=== PATIENT | female | born 1960 | race Caucasian/White ===

== ENCOUNTER 2017-05-29 18:16 | Emergency (ER) | payer OTHER ==
[~2017-05-29] VITALS: Ht 167.6 cm; Wt 39.9 kg
[~2017-05-29 18:16] MED LIST: ANTABUSE250 MG PO; ASPIRIN EC81 MG PO; BACTRIM DS TAB1 EACH PO; FOLIC ACID1 MG PO; METOPROLOL TART25 MG PO; MULTI VITAMIN1 EACH PO; NORCO 7.5-3251 EACH PO; PAROXETINE HCL20 MG PO; POTASSIUM40 MEQ/15 PO; PROTONIX40 MG PO; SENNA8.6 MG PO; SEROQUEL25 MG PO; THIAMINE HCL100 MG PO; VALIUM5 MG PO; ZOFRAN ODT4 MG PO
[2017-05-29] MEDS ORDERED: POTASSIUM CHLO10 MEQ PO (23:04)
[2017-05-29] MEDS ORDERED: ZOFRAN ODT4 MG PO (23:04)
--- NOTE | 2017-05-30 00:18 | EKG ---
[facility] [address] [facility] [place], [place] [address] Signed Normal sinus rhythm Low voltage QRS Borderline ECG No previous ECGs available Confirmed by NATALIO PASCAL MD ([id number]) on 05/30/2017 12:18:36 AM Electronically Signed By: NATALIO PASCAL MD 05/30/17 0018 PATIENT NAME: CHIDI LEDBETTER Claudia Electrocardiogram DATE OF : 62 PHYSICIAN: NATALIO PASCAL MD REPORT #: [id number] REPORT IS CONFIDENTIAL AND NOT TO BE RELEASED WITHOUT AUTHORIZATION
== END 2017-05-30 00:40 | disposition home or self-care (01) ==
LOC: ED 18:16
DX: F10.10 Alcohol abuse, uncomplicated (principal); E87.6 Hypokalemia; F32.9 Major depressive disorder, single episode, unspecified; F17.200 Nicotine dependence, unspecified, uncomplicated; Z90.49 Acquired absence of other specified parts of digestive tract; Z96.642 Presence of left artificial hip joint; Z88.1 Allergy status to other antibiotic agents; Z79.82 Long term (current) use of aspirin; Y90.0 Blood alcohol level of less than 20 mg/100 ml
CPT/HCPCS: 51701; 71010; 73502; 80053; 81001; 84484; 85025; 93005; 93010; 96365; 96368; 99284; G0480; J3411; J3480; J7030

== ENCOUNTER 2017-06-03 12:28 | Inpatient (IN) | payer OTHER ==
[~2017-06-03] VITALS: Ht 167.6 cm; Wt 46.5 kg
[~2017-06-03 12:28] MED LIST changes: +POTASSIUM CHLO10 MEQ PO
--- NOTE | 2017-06-03 17:10 | NUR ---
56 YEAR OLD FEMALE PATIENT ADMITTED TO CCU UNDER DR. CONTRERAS WITH DX ALTERED SENSORIUM. K=2.7,MG=1.2. HX OF ETOH ABUSE WITH DT'S. UPON ADMIT PATIENT WILL SAY ONNLY FEW WORDS, WILL FOLLOW COMMANDS RARELY. CONTROLLED MOVEMENT NOTED IN LEFT ARM AND LEFT LEG. HAS BRUSIES ON BACK, LEGS, ARMS. HAS HAS POSSIBLE SEIZURES AT HOME. SHAY WITH CONCENTRATED URINE. FAMILY IN ROOM. ADMISSION PROCESS STARTED. HEAD CT DONE EARLIER.
--- NOTE | 2017-06-03 18:30 | NUR ---
TAKING FEW SIPS OF WATER. DENEIS NAUSEA.
--- NOTE | 2017-06-03 20:00 | NUR ---
assessment done. HAS BEEN TAKING SIPS OF WATER WITH HOB ELEVATED W/O PROBLEMS. IS TRYING TO CHEW ON OXIMETER. OXIMETER CHANGED TO LEFT HAND. IS MORE ALERT ANSWERING FEW QUESTIONS. NO SEIZURE ACTIVITY NOTED.
--- NOTE | 2017-06-03 20:20 | NUR ---
500 ML BOLUS LR HUNG PER ORDERS BP-84/51 (58).
--- NOTE | 2017-06-03 20:51 | NUR ---
500 ML BOLUS LR COMPLETE. PATIENT IS RESTFUL.
--- NOTE | 2017-06-03 21:41 | NUR ---
ASLEEP, NO DISTRESS NOTED.
--- NOTE | 2017-06-03 22:18 | NUR ---
REPORT TO NEXT SHIFT. PATIENT IS ASLEEP.
--- NOTE | 2017-06-03 22:30 | NUR ---
FULL REPORT GIVEN BY ORLIN BRASHER. ALL QUESTIONS ANSWERED.
--- NOTE | 2017-06-03 22:45 | NUR ---
PT SLEEPING LIGHTLY, VITALS WNL AT THIS TIME, FLUIDS INFUSING EASILY. IV SITE INTACT, NO REDNESS OR SWELLING NOTED.
--- NOTE | 2017-06-03 22:55 | EKG ---
[facility] [address] [facility] [place] [address] Signed Normal sinus rhythm Low voltage QRS Prolonged QT Abnormal ECG When compared with ECG of 31-MAY-2017 09:15, premature ventricular complexes are no longer present Criteria for Septal infarct are no longer present T wave amplitude has decreased in Lateral leads Confirmed by LILA CONTRERAS MD ([id number]) on 06/03/2017 10:55:22 PM Electronically Signed By: LILA CONTRERAS MD 06/03/17 2255 PATIENT NAME: CHIDI LEDBETTER Claudia Electrocardiogram DATE OF : 62 PHYSICIAN: LILA CONTRERAS MD REPORT #: [id number] REPORT IS CONFIDENTIAL AND NOT TO BE RELEASED WITHOUT AUTHORIZATION
--- NOTE | 2017-06-03 23:40 | NUR ---
CALLED TO UPDATE ON LOW URINE OUTPUT, 1L LR BOLUS ORDERED TO BE GIVEN OVER 3 HOURS.
--- NOTE | 2017-06-04 00:05 | NUR ---
20 G IV STARTED IN LEFT FOREARM. PT MARY ALICE WELL. FLUIDS INFUSING EASILY. IV SITE IN RT FOREARM INTACT, FLUIDS INFUSING EASILY, NO REDNESS OR SWELLING NOTED. PT DID NOT OPEN EYES DURING PLACEMENT OF NEW IV. PT REMAINS OBTUNDED.
--- NOTE | 2017-06-04 00:30 | NUR ---
IN TO CHECK ON PT, PT APPEARS TO BE SLEEPING. AWAKEN EASILY TO VOICE. PT REPOSITION TO R SIDE, PILLOW UNDER HIPS AND LEGS. HEEL PROTECTOR IN PLACE. PT STATES "GUYS I AM GOOD FOR NOW." PT REASSURED THAT REPOSITION WILL HELP PREVENT SKIN BREAK DOWN. RN UNAWARE IF PT UNDERSTANDS. BED ALARM IN PLACE, CALL LIGHT IN REACH.
--- NOTE | 2017-06-04 02:15 | NUR ---
PT SLEEPING SOUNDLY, VITALS WNL. PT URINE OUTPUT REMAINS LOW.
--- NOTE | 2017-06-04 03:50 | NUR ---
CALLED TO UPDATE ON PT LOW URINE OUTPUT. ORDER GIVEN TO INCREASE RATE OF MAINTNENCE FLUIDS TO 200 ML/HR.
--- NOTE | 2017-06-04 04:12 | NUR ---
IV SITES INTACT, NO REDNESS OR SWELLING NOTED, FLUIDS INFUSING AT BOTH SITES EASILY.
--- NOTE | 2017-06-04 05:36 | NUR ---
PT REMAINS OBTUNDED, MOANS OCCASIONALLY, PT IS NOT THRASHING OR FLAILING LIMBS.
--- NOTE | 2017-06-04 10:00 | NUR ---
UP TO CHAIR WITH ASSIST. MINIMAL WEIGHT AN LEFT LEG. UNABLE TO TAKE A STEP. IS MORE VERBAL. FAMILY IN ROOM.
--- NOTE | 2017-06-04 12:30 | NUR ---
HAVING DIFFICULTY WITH VISION, ATTEMPTS TO ORDER DESK CALLER GLASS/CUP, IS OFF WITH REACH OF THESE ITEMS. SPILLED SOUP WHEN REACHING FOR IT.
--- NOTE | 2017-06-04 12:33 | NUR ---
dr. allen here TO SEE PATIENT. ORDERS RECIEVED.
--- NOTE | 2017-06-04 12:55 | NUR ---
WILL BE TRANSFERRED TO MEDICAL FLOOR TODAY. SITTING UP IN CHAIR TAKING ENSURE/CLEAR LIQ AND CHICKEN NOODLE SOUP. CLEARS THROAT AFTER TAKING BITE.
--- NOTE | 2017-06-04 13:40 | NUR ---
JASPAL LEYVA DC'D. BACK TO BED WITH TOTAL ASSIST. IS VERY FRUSTRATED. FAMILY IN ROOM. C/O LEFT WRIST PAIN, WRIST IS SLIGHTLY SWOLLEN.
--- NOTE | 2017-06-04 14:25 | NUR ---
REPORT GIVEN, TO MEDICAL FLOOR VIA BED.
--- NOTE | 2017-06-04 14:30 | NUR ---
PT ARRIVED TO FLOOR FROM CCU VIA BED. PT ORIENTED TO HER BIRTHDAY AND THAT SHE IS IN MED. OTHERWISE UNABLE TO ANSWER ORIENTATION QUESTIONS STATES "I DON'T KNOW". PT DENIES PAIN OR NAUSEA, KEEPS SAYING "I HAVE TO BE DISCHARGED NOW, I NEED TO GET OUT OF HERE." LEFT SIDE FLACCID AT THIS TIME, LISTS TO LEFT WHEN SITTING UP, CANNOT SIT AT EDGE OF BED WITHOUT ASSISTANCE. BOTH IV SITES INTACT, RIGHT ARM IV INFUSING WNL. PT HAS MANY SMALL SCATTERED BRUISES ON BODY. SCABS TO TOP OF TOES ON RIGHT FOOT, SMALL OPEN PRESSURE SORE ON LEFT GREAT TOE, BALL JOINT. PHOTOS TAKEN AND ALLEVYN FOAM DRESSING APPLIED. HEEL PROTECTORS IN PLACE. BUTTOCKS SLIGHTLY REDDENED, BLANCHABLE, PT FLOATED ON PILLOWS. SCABS ON BILATERAL ELBOWS. BED ALARM ON.
--- NOTE | 2017-06-04 15:00 | NUR ---
PT 2PA PIVOT TRANSFER TO BSC. VOIDED AND HAD SMALL, LOOSE STOOL. ATTENDS ON AND PT ASSISTED BACK TO BED. FLOATED ON PILLOWS. BED ALARM ON.
--- NOTE | 2017-06-04 17:15 | NUR ---
PT ATTENDS CHANGED, INCONTINENT OF URINE. REPOSITIONED IN BED. MENTATION AND LEFT SIDED WEAKNESS UNCHANGED.
--- NOTE | 2017-06-04 18:36 | NUR ---
PT NEEDED ASSISTANCE TO EAT DINNER DUE TO COORDINATION DIFFICULTIES. NOTED THAT PT COUGHED FREQUENTLY AFTER A COUPLE BITES, MOVED FOOD AROUND IN MOUTH FOR A LONG TIME BEFORE SWALLOWING. MADE PT NPO AND NOTIFIED DR. CONTRERAS. BEDSIDE SWALLOW EVAL COMPLETED. PT REPOSITIONED IN BED AND RESTING AT THIS TIME.
--- NOTE | 2017-06-04 19:30 | NUR ---
REPORT RCVD FROM NATHAN BRASHER. IN TO SEE PT, PT AWAKE SITTING IN BED. PT DENIES PAIN AT THIS TIME. NO FURTHER NEEDS AT THIS TIME. BED ALARM IN PLACE. CALL LIGHT IN REACH.
--- NOTE | 2017-06-04 21:20 | NUR ---
IN TO SEE PT, ASSESSMENT COMPLETE. CWA SCORE OF 6. PT NOTED TO BE SLOW TO RESPOND BUT ORIENT TO SELF. PT ABLE TO GIVE FULL NAME AND . FLACCIDITY IN LEFT UPPER AND LOWER EXTREMITY NOTED. PT UNABLE TO GASP WITH L HAND. SENIOR PROPERTY MANAGER STRENGTH AND ROM IN RUE AND RLE INTACT. ATTENDS CHANGES. REDDNESS ON BUTTOCKS NOTED. PT REPOSITION TO BACK AND LEGS ELEVATED WITH PILLOW. WARM BLANCKET GIVEN. BED ALARM ON, CALL LIGHT IN REACH.
--- NOTE | 2017-06-05 01:11 | NUR ---
PT RESTING IN BED WITH EYES OPEN, STARING AT CEILING. DOES NOT LOOK WHEN TAP PULLER ENTERS THE ROOM. RESPIRATIONS ARE EVEN AND UNLABORED. NO S/SX OF DISTRESS. CALL LIGHT WITHIN REACH. ROOM IN VIEW OF NURSES STATION. BED ALARM IN PLACE.
--- NOTE | 2017-06-05 02:55 | NUR ---
INTO CHECK ON PT, PT APPEARS TO BE SLEEPING. AWAKENS TO VOICE. ATTENDS DRY AT THIS TIME. REPOSITION TO BACK, LEGS ELEVATED ON PILLOW. HEEL PROTECTORS IN PLACE. BED ALARM ON, CALL LIGHT IN PLACE.
--- NOTE | 2017-06-05 04:06 | NUR ---
CHANGED PATIENT'S ATTENDS. REPOSITIONED TO LAYING ON HER RIGHT SIDE.
--- NOTE | 2017-06-05 04:10 | NUR ---
IN TO HELP CHANGES ATTENDS. WHEN ADVISING PT THAT ATTENDS ARE TO BE CHANGED, PT STATES "NO I DON'T WANT THAT RIGHT NOW." PT APPEARED ANXIOUS. REASSURED THAT WILL CHANGE ATTEND QUICKLY AND RECOVER PT. PT UNABLE TO FOLLOW COMMANDS AND HELP WITH ROLLING. PT POSTION ON L SIDE WITH PILLOW UNDER HIP AND KNEES. PT RECOVERED. BED ALARM ON AND CALL LIGHT IN REACH.
--- NOTE | 2017-06-05 08:16 | NUR ---
PATIENT IS SLEEPING I DID NOT WAKE HER PATIENT IS NPO, I WILL CHECK BACK IN TO GET AM CARE DONE!
--- NOTE | 2017-06-05 08:20 | NUR ---
PT DROWSY THIS AM. NO CHANGES NOTED FROM ASSESSMENT YESTERDAY. ORIENTED TO SELF AND LOCATION ONLY. DENIES PAIN, NAUSEA. KEEPS SAYING "I GOTTA GET OUT OF HERE." SPEECH SLOW TO RESPOND AND SLURRED. ENTIRE LEFT SIDE FLACCID WITH LEFT FACIAL DROOP NOTED. BED ALARM ON.
--- NOTE | 2017-06-05 08:20 | NUR ---
PT INCONTINENT OF URINE. ATTENDS CHANGED. PT REPOSITIONED IN BED.
--- NOTE | 2017-06-05 10:22 | NUR ---
PT FULL LIFT TRANSFER TO MRI STRETCHER. TRANSPORTED TO IMAGING AT THIS TIME.
--- NOTE | 2017-06-05 11:10 | NUR ---
PT RETURNED FROM MRI. FULL LIFT TRANSFER BACK TO HOSPITAL BED. AM CARES COMPLETED AND ATTENDS CHANGED. PT PLACED IN POSITION OF COMFORT. IV INFUSING WNL. BED RAILS UP AND BED ALARM ON.
--- NOTE | 2017-06-05 12:55 | NUR ---
CHANGES NOTED TO PT'S STATUS. SPEECH HAS BECOME MUCH MORE SLURRED AND DIFFICULT TO UNDERSTAND, PT ORIENTED TO [facility], AND BIRTHDAY. FACIAL TWITCH NOTED, MORE SEVER ON LEFT SIDE, EFFECTING PT'S SPEECH. PT STATED SHE NEEDED TO GO TO THE BATHROOM "NOW!!". THIS RN AND SONI DUBON ATTEMPTED TO GET PT TO BSC. PT WAS UNABLE TO SIT UP WITHOUT FULL ASSISTANCE AND WAS UNABLE TO PIVOT TRANSFER, THIS IS A CHANGE FROM YESTERDAYS AND THIS AM ASSESSMENT. PT ASSISTED BACK TO BED SAFELY AND ATTENDS CHANGED THEY WERE WET. PT REPOSITIONED TO RIGHT SIDE. NOTIFIED DR. CONTRERAS OF PT CHANGES.
--- NOTE | 2017-06-05 14:27 | NUR ---
SCHEDULED MEDS ADMINISTERED. ATTENDS CHANGED AND PT REPOSITIONED IN BED. PT DROWSY D/T ATIVAN ADMINISTRATION BUT FACIAL TWITCH NO LONGER PRESENT AT THIS TIME. PULSE OX ON. PT SATTING 95% ON RA, HR 79.
--- NOTE | 2017-06-05 17:02 | NUR ---
PT ATTENDS CHANGED. REPOSITIONED IN BED. PT VERY DROWSY BUT OPENS EYES WITH VERBAL STIMULI.
--- NOTE | 2017-06-05 18:53 | NUR ---
ATTENDS CHANGED. PT REPOSITIONED.
--- NOTE | 2017-06-05 19:20 | NUR ---
REPORT RCVD FROM NATHAN BRASHER. IN TO SEE PT, PT IN BED. FACIAL TWITCH/TICK. REPORTS OF INCREASED WEAKNESS NOTED. PT NPO UNTIL ST EVAL. PULSE OX IN PLACE. PT INCONT, UO QS. TURN Q2. CALL LIGHT IN REACH.
--- NOTE | 2017-06-05 21:25 | NUR ---
IN TO SEE PT, PT RESTING EYES CLOSED. AWAKENS EASILY TO VOICE. PT ABLE TO VERIFY NAME AND . SPEECH SLOW, BUT ABLE TO RESPOND TO SIMPLE COMMANDS. LUE AND LLE FACCIDITY NOTED. L SIDED FACIAL DROOP AND TICK NOTED. PT NOTED TO BE NPO. PULSE OX IN PLACE. PT REPOSITION AFTER BEING ABLE TO MOVE SELF. CALL LIGHT IN PLACE.
--- NOTE | 2017-06-05 23:00 | NUR ---
IN TO SEE PT. ATTENDS CHANGED, PT REPOSITION TO BACK. WARM BLANKET GIVEN. CALL LIGHT IN REACH.
--- NOTE | 2017-06-06 01:40 | NUR ---
IN TO CHECK ON PT, PT APPEARS TO BE SLEEPING. RR EVEN AND UNLABORED. PT INCONT OF URINE, ATTENDS CHANGED. REPOSITIONED TO RIGHT SIDE. NO FURTHER NEEDS AT THIS TIME. CALL LIGHT IN REACH.
--- NOTE | 2017-06-06 04:51 | NUR ---
IN TO CHECK ON PT, PT AWAKE. ATTENDS CHANGED, REPOSITIONED TO R SIDE. PT CALLS OUT "MOM." PT REORIENTED TO PLACE. PT TALKING, UNABLE TO UNDERSTAND WHAT PT IS TRYING TO CONVEY. IV IN L FORARM WRAPPED DUE TO SKIN TEAR BELOW IV TUBING. BED ALARM ON, CALL LIGHT IN REACH.
--- NOTE | 2017-06-06 05:02 | NUR ---
CHANGED ATTENDS. PATIENT IS REPOSITIONED LAYING ON HER RIGHT SIDE. CALL LIGHT IS WITHIN REACH. BED ALARM ON.
--- NOTE | 2017-06-06 05:28 | NUR ---
PT HAS RESTED WELL DURING THE SHIFT. ORIENTED TO SELF X 1 AND ABLE TO FOLLOW SIMPLE COMMANDS. L SIDED FLACITIY NOTED. L SIDE FACIAL TICK NOTED. INCONT OF URINE. BARRIER CREAM APPLIED TO BUTTOCKS AND PT TURNED Q2. ORAL CARE DONE.
--- NOTE | 2017-06-06 07:50 | NUR ---
PT ATTENDS CHANGED AND REPOSITIONED. FACE WASHED, ORAL CARE COMPLETED. PT ORIENTED TO SELF AND "MED." SPEECH IS SLIGHTLY MORE CLEAR THIS AM ALTHOUGH MOST THINGS SHE SAYS ARE NOT PERTINENT TO THE SITATION. PT DENIES PAIN, JUST STATES "I GOTTA GET OUT OF HERE." LEFT SIDE REMAINS FLACCID. PT ABLE TO FOLLOW SIMPLE COMMANDS FOR ASSESSMENT OF RIGHT SIDE, WEAK BUT CONCIOUS MOVEMENT PRESENT. LEFT FACIAL TWITCH REMAINS. LEFT IV INFUSING WNL. NOTED THAT PT HAD PICKED A COUPLE SCABS OFF OF LEFT ELBOW AREA AND SMALL AMOUNT OF BLEEDING NOTED. CLEANED UP, APPLIED BACITRACIN AND BANDAIDS, WRAPPED ARM WITH GAUZE AND COBAN TO PREVENT FURTHER INJURY. BED ALARM ON.
--- NOTE | 2017-06-06 10:55 | NUR ---
MATERIALS DIRECTOR IN ROOM PERFORMING ECHO AT THIS TIME. PT MARY ALICE WELL.
--- NOTE | 2017-06-06 11:15 | NUR ---
ATTENDS CHANGED, REPOSITIONED IN BED.
--- NOTE | 2017-06-06 12:34 | NUR ---
PT AWAKE IN BED VISITING WITH SON AND DAUGHTER. SPEECH SLURRED AND SLOW TO RESPOND BUT ABLE TO COMMUNICATE SLIGHTLY. DENIES NEEDS OR CONCERNS. BED ALARM ON.
--- NOTE | 2017-06-06 12:50 | NUR ---
PT ATTENDS CHANGED, REPOSITIONED IN BED. FAMILY AT BEDSIDE.
--- NOTE | 2017-06-06 13:38 | NUR ---
LEFT SIDED STRENGTH IMPROVED. GROSS MOVEMENT NOTED. ABLE TO FOLLOW VERY SIMPLE COMMANDS, SLOW TO RESPOND. DR. DIANE EDWARDS ON PT. PT SON AND MOTHER AT BEDSIDE.
--- NOTE | 2017-06-06 13:51 | NUR ---
PT REPORTED THAT SHE WAS "GOING TO THE BATHROOM." ATTENDS CHANGED, REPOSITIONED IN BED. FAMILY AT BEDSIDE.
--- NOTE | 2017-06-06 16:30 | NUR ---
PT ATTEMPTED TO AMBULATE PT WITH WALKER. PT STATED SHE NEEDED TO GO TO THE BATHROOM SO TRANSFER TO [facility] WAS ATTEMPTED INSTEAD. PT WAS 2-3 PERSON ASSIST, UNABLE TO BARE MUCH WEIGHT OR MOVE FEET INDEPENDENTLY. PT ASSISTED BACK TO BED. NEW ATTENDS ON. REPOSTIONED IN BED. FAMILY AT BEDSIDE. BED ALARM ON.
--- NOTE | 2017-06-06 17:53 | NUR ---
FAMILY REPORTED THAT PT WAS PULLING AT IV AND TRYING TO GET OUT OF BED. IV DC'D IT WAS LEAKING, LEFT IV SITE REMAINS INTACT AND INFUSING WNL. BED ALARM ON. FAMILY LEAVING FOR THE NIGHT AT THIS TIME.
--- NOTE | 2017-06-06 18:27 | NUR ---
ATTENDS CHANGED AND PT REPOSITINED IN BED. BED ALARM ON.
--- NOTE | 2017-06-06 19:30 | NUR ---
REPORT RECVD FROM NATHAN BRASHER. PT IN BED WATCHING TV. REPORT THAT PT'S STRENGTH ON THE L SIDE HAS IMPROVED TODAY. PT REMAINS NPO. NO FURTHER NEEDS AT TIS TIME. BED ALARM ON, CALL LIGHT IN REACH.
--- NOTE | 2017-06-06 20:56 | NUR ---
CHANGED DRAW SHEET AND ATTENDS. REPOSITIONED FLOATING. CALL LIGHT WITHIN REACH. BED ALARM ON.
--- NOTE | 2017-06-06 21:55 | NUR ---
IN TO SEE PT, PT AWAKE. ASSESSMENT COMPLETE AND PM MEDICATIONS GIVEN. PT APPEARS AGITATED AT TIME. PT STATES "I WANT MY LIFE BACK." PT ABLE TO GIVE FULL NAME AND . PT TALKED ABOUT HER DAUGHTER BY NAME "ERASMO." NOTED L SIDED FACIAL TICK STILL PRESENT. PT ABLE TO LIFT AND HOLD L LE FOR 10 SECONDS. LUE CONTINUES TO BE FLACCID. INTERMITTENT GARBBLED SPEECH NOTED. NO FURTHER NEEDS AT THIS TIME. HEEL PROTECTORS IN PLACE. NO FURTHER NEEDS AT THIS TIME. CALL LIGHT IN REACH.
--- NOTE | 2017-06-07 00:27 | NUR ---
ANSHU DELGADO AND I CHANGED THE PATIENT'S ATTENDS. PATIENT REPOSITIONED LAYING ON HER RIGHT SIDE. CALL LIGHT WITHIN REACH. BED ALARM ON.
--- NOTE | 2017-06-07 00:28 | NUR ---
IN TO CHECK ON PT, PT REPOSITIONED SELF IN BED. ATTEND SATURATED. WHEN CHANGING PT'S ATTENDS PT BECOMES AGITATED. PT YELLING "YARA LIVINGSTON." ATTEMPTED TO REORIENT, UNSUCCESSFUL. PT GRABBING AT STAFF WITH R ARM. PT STATING THAT STAFF IS "PSYCHO AND NEEDS TO BE COMMITTED." PT REPOSITIONED TO R SIDE FOR COMFORT. HEEL PROTECTORS IN PLACE. BED ALARM ON, CALL LIGHT IN REACH.
--- NOTE | 2017-06-07 02:30 | NUR ---
IN TO CHECK ON PT. PT APPEARS TO BE SLEEPING. REPOSITIONED SELF TO BACK. HEEL PROTECTORS IN PLACE. IVF INFUSING. BED ALARM ON, CALL LIGHT IN PLACE.
--- NOTE | 2017-06-07 05:23 | NUR ---
PT HAS HAD AN UNEVENFUL SHIFT, RESTED WELL. STRENGTH IN LLE IMPROVED, LUE SHOWS SOME GROSS MOVEMENT. L SIDE FACIAL DROOP AND TWITCH NOTED. NPO PER ST. KEPPRA GIVEN PER SEIZURE ACTIVITY. IZABELA LIFT. TURN Q2 HRS.
--- NOTE | 2017-06-07 07:38 | NUR ---
REPORT RECIEVED FROM ANSHU ASIF. PT IN BED AND RIGHT SIDE. HAD APPROX 4 MIN SEIZURE WHILE STAFF IN ROOM. PT STATES SHE IS TIRED NOW.
--- NOTE | 2017-06-07 08:19 | NUR ---
PT REFUSED ASPRIN SUPP. PT ABLE TO ANSWER SOME QUESTIONS AND WAS ABLE TO TELL US SHE DIDN'T WANT THE SUPP. IV SITE WNL. KEPPRA INFUSING. PT HAD ANOTHER SMALL SHORTER SEIZURE. PT RECIEVED SEVERAL PHONE CALLS AND STATED SHE WOULD CALL THEM BACK.
--- NOTE | 2017-06-07 09:45 | NUR ---
RN AND FAMILY IN ROOM.
--- NOTE | 2017-06-07 10:00 | NUR ---
PT HAD HER 5TH WITNESSED SEIZURE. SON IN ROOM AND CONCERNED. EXPLAINED THAT SHE HAD JUST RECIEVED IV KEPPRA AND THAT IT SHOULD HELP. PT NOTICABLY FATIGUED.
--- NOTE | 2017-06-07 12:45 | NUR ---
SPEECH THER. IN ROOM TO DO EVAL. FAMILY IN [place]A.
--- NOTE | 2017-06-07 13:00 | NUR ---
2 PERSON ASSIST WITH BED BATH. NIA CARE DONE. LINEN CHANGE DONE. CLEAN ATTENDS. REPOSITIONED ONTO RIGHT SIDE. HAIR BRUSHED AND BRAIDED. CALL BUTTON IN REACH. NO OTHER NEEDS AT THIS TIME.
--- NOTE | 2017-06-07 14:00 | NUR ---
TALKED WITH SPEECH THERAPIST REGARDING PT INABILITY TO SWALLOW EVEN HER SALIVA. FAMILY HAD WANTED TO PROGRESS WITH BARIUM SWALLOW BUT IT IS UNSAFE AT THIS POINT. SON WANTING TO HAVE A MEETING WITH REGARDING PLAN OF CARE.
--- NOTE | 2017-06-07 14:57 | NUR ---
PT ASLEEP. FAMILY HAS LEFT FOR AWHILE. IV INFUSING WNL. PT TWITCHING WHILE SLEEPING.
--- NOTE | 2017-06-07 15:56 | NUR ---
PT SLEEPING. SON AND DAUGHTER IN LAW ARE GOING HOME TO [place]. THEY ARE TO HAVE A CARE MEETING A 0930 IN THE MORNING. FAMILY APPEARS SATISFIED WITH THAT.
--- NOTE | 2017-06-07 19:08 | NUR ---
PATIENT IS RESTING IN BED. FAMILY IS AT THE BEDSIDE. CALL LIGHT IN REACH AND ROSIO ALARM ON.
--- NOTE | 2017-06-07 19:22 | NUR ---
SPOKE WITH FAMILY REGARDING PLAN OF CARE AND SWALLOW STUDY RESULTS. LAVERN BOONE HAS MULTIPLE QUESTIONS. EXPLAINED CARE CONFERENCE IN THE MORNING. PT RESTING AFTER FAMILY LEFT.
--- NOTE | 2017-06-07 20:25 | NUR ---
ATTEND CHANGED AND NIA CARE PERFORMED. ORAL CARE PERFORMED.
--- NOTE | 2017-06-07 21:45 | NUR ---
PATIENT ASSESMENT COMPLETED AND RECORDED. PATIENT CONTINUES TO REST IN BED AND HAS TWITCHING EPISODES. PATIENTS EVENING MEDICATIONS GIVEN PER ORDER. PATIENTS ATTEND CHANGED. PATEINT REPOSITIONED. PATIENT WAS ABLE TO ANSWER A VERY QUIET "YES" WHEN ASKED IF SHE WAS COMFORTABLE. PATIENT WAS ALSO ABLE TO SHAKE HER HEAD YES WHEN ASKED IF SHE WOULD LIKE HER LIGHT LEFT ON. PATIENTS CALL LIGHT IS WITHIN REACH.
--- NOTE | 2017-06-08 00:05 | NUR ---
PATIENTS ATTEND CHANGED. NIA CARE PERFOMED. PATIENT REPOSTIONED. PATIENT TOELRATED ACTIVITY WELL. PATIENT DID NOT RESPOND TO ANY QUESTIONING AT THIS TIME. CALL LIGHT IN REACH.
--- NOTE | 2017-06-08 02:09 | NUR ---
PATIENT REPOSITIONED. ATTEND IS DRY. ORAL CARE PERFORMED. PATIENT TOLERATED ACTIVITY WELL. CALL LIGHT IN REACH. PATIENT CONTINUES TO HAVE EPISODES OF TREMORS.
--- NOTE | 2017-06-08 04:24 | NUR ---
PATIENT RESTED ON AND OFF THROUGH THE SHIFT. PATIENT IS NPO AT THIS TIME, PENDING A SWALLOW EVAL (PRIORS UNSUCESSFUL). PATIENT IS ON BED REST, TURN Q2. PATIENT IS INCONTINENT, ATTEND IN PLACE. PATIENT IS ON SEIZURE PRECAUTIONS. PATIENT HAS A TWITCH IN HER LEFT ARM. PATIENT CONTINUES TO HAVE WHAT APPEAR TO BE SEIZURES BUT ARE INFREQUENT. PATIENT CAN SHAKE HEAD YES/NO AT TIMES. PATIENT ONLY ANSWERED YES ONCE TO QUESTIONING. ORAL CARE PERFORMED.
--- NOTE | 2017-06-08 05:34 | NUR ---
PATIENT IS CHANGED SOAKED ATTENDS. REPOSITIONED TO HER SIDE.
--- NOTE | 2017-06-08 05:36 | NUR ---
PATIENTS VITALS TAKEN AND RECORDED. PATIENTS ATTEND [facility] AND NIA CARE PERFORMED. PATIENT REPOSTIONED ON HER LEFT SIDE. PATIENT TOLERATED ACTIVITY WELL. WHEN ASKING THE PATIENT IF SHE WAS COLD, PATIENT STATED "YES". WARM BLANKET PROVIDED. ORAL CARE PERFOMED. PATIENTS CALL LIGHT IS WITHIN REACH.
--- NOTE | 2017-06-08 07:31 | NUR ---
REPORT RECIEVED FROM ANSHU PERDUE. PT APPEARS TO BE ASLEEP. IV INFUSING. LAYING ON LEFT SIDE.
--- NOTE | 2017-06-08 08:55 | NUR ---
RN AND STUDENT NURSE IN ROOM TO CHANGE ATTENDS AND REPOSITION HER.
--- NOTE | 2017-06-08 09:24 | NUR ---
PT ASLEEP. CHANGED DEPENDS AND BEDDING. PT WOKE AND ANSWERED SOME QUESTIONS. DID NOT HAVE SEIZURE WHILE CHANGING, AN IMPROVEMENT FROM YESTERDAY. FAMILY NOW IN ROOM. MORENA KINGUSING WNL.
--- NOTE | 2017-06-08 09:32 | NUR ---
PT CARE CONFERENCE HELD IN CCU WAITING ROOM AT FAMILY REQUEST FOR MEETING NOT TO TAKE PLACE IN PT ROOM THEY DIDN'T WANT THE PT UPSET OVER THE CONVERSATION. STATING THEY WOULD TALK TO HER ABOUT THAT LATER. ATTENDEES: ERASMO-DAUGHTER, PAOLO-SON AND , WENCESLAO-MOTHER, ANETTE-FATHER, MICHAEL. STAFF: DR CONTRERAS, MYSELF AND CRISTY BRASHERCOMPLIANCE CONSULTANT, YOAV- RN, DYLLAN RN, PRASHANTH-PHARMACY, SAURAV-OT, STUDENT NURSE. DISCUSSION WAS HAD REGARDING PT CARE FROM THIS POINT, DR CONTRERAS BEGAN CONVERSATION WITH FAMILY REGARDING PT CONDITION AND WHAT HER PROGNOSIS IS LIKELY TO BE. SON WAS ASKING ABOUT PROS AND CONS FOR THE FEEDING TUBE AND WHAT WAS GOING TO HAPPEN IF THEY OPTED OUT OF THE FEEDING TUBE. DR CONTRERAS ANSWERED QUESTIONS AND OTHER FAMILY MEMBERS JOINED THE CONVERSATION. STATED THEY WOULD TALK ABOUT THE FEEDING TUBE BUT PAOLO STATED HE WANTED TO KEEP THIS A LAST DITCH EFFORT. DR CONTRERAS EXPLAINED THAT FAR NUTRITION GOES PT WAS MALNOURISHED LONG BEFORE SHE HAD THIS STROKE. SHORT DISCUSSION ABOUT COMFORT CARE WAS HAD. MEETING LASTED ABOUT 45 MINUTES. AT THE TIME ALL QUESTIONS WERE ANSWERED AND FAMILY WAS LEFT ALONE TO DISCUSS PT CARE.
--- NOTE | 2017-06-08 10:28 | NUR ---
STUDENT NURSE IN WITH PATIENT TAKING VITAL SIGNS.
--- NOTE | 2017-06-08 10:48 | NUR ---
PT STATES SHE HAS A HEADACHE, OFFERED A SUPPOSITORY SHE IS NPO. SHE STATED "NOT IN A MILLION YEARS". SHE ALSO HAS KICKED SPEECH THERAPY OUT OF THE ROOM STATING THAT IF THE SWAB DOES NOT HAVE VODKA ON IT SHE WILL NOT ALLOW IT IN HER MOUTH AND THAT SHE DOES NOT WANT TO DO THERAPY ANYWAYS.
--- NOTE | 2017-06-08 12:05 | NUR ---
SON PAOLO APPROACHED DR CONTRERAS AND MYSELF STATING THEY HAD MADE SOME DECISIONS TO NOT WANTING THE FEEDING TUBE AND THAT THEY WERE THINKING OF ALLOWING HER TO EAT SOMETHING AND IF SHE ASPIRATED THEY WOULD HAVE SOMEONE RIGHT THERE ALL THE TIME WHEN SHE IS EATING TO TAKE CARE OF IT IF SHE STARTED CHOKING. DR CONTRERAS EXPLAINED THAT WITH PALLATIVE CARE, IF SHE CAME DOWN WITH ASPIRATION PNEUMONIA WE WOULD TREAT SX SUCH SOB, PAIN, BUT NOT THE PNEUMONIA ITSELF. PAOLO STATED HE UNDERSTOOD. ALSO STATED THAT THEY JUST WANT NATURE TO TAKE ITS COURSE BUT THEY ALSO DID NOT WANT TO JUST GIVE UP ON HER. STATED HE WANTED TO TALK WITH GRANDPARENTS AND SISTER ABOUT DNR/DNI STATUS BUT HE FELT PRETTY SURE THAT IS WHAT THEY WANTED. HE ALSO WAS GOING TO TALK WITH THEM ABOUT PLACEMENT IN SNF. HE THOUGHT THEY WOULD DO [place] BUT AGAIN HE IS GOING TO CHECK WITH THE REST OF THE FAMILY. HE SAID HE WOULD GET BACK TO US WITH THE ANSWERS TO THIS.
--- NOTE | 2017-06-08 12:45 | NUR ---
STUNDENT NURSE IN WITH PATIENT TURN AND CHANGE HER.
--- NOTE | 2017-06-08 12:57 | NUR ---
STUDENT RN AND BUILDING PERFORMANCE CONSULTANT CHANGED PT AGAIN AND ROTATED HER. PT TOLERATED WELL. ORAL CARE DONE. FAMILY IN ROOM.
--- NOTE | 2017-06-08 13:20 | NUR ---
ASSISTED PATIENT WITH ORAL CARE. HANDS AND FACE WASHED. CLEANED UNDER PATIENTS FINGERNAILS. COMBED AND BRAIDED HAIR.
--- NOTE | 2017-06-08 14:11 | NUR ---
MET WITH DAUGHTER ERASMO. FAMILY HAD JUST COME FROM CARE CONF WITH DR CONTRERAS. DECISION WAS MADE TO NOT INSERT FEEDING TUBE. ERASMO EMOTIONAL, UPSET AND MENTIONED SEVERAL TIMES, "I DON'T WANT MOM TO HURT ANYMORE". DEBRIEFED HER LET HER VENT AND REASSURED HER THAT I WOULD BE HERE FOR HER. WE HAD PRAYER, SHE FELT SHE NEEDED TO GET BACK TO HER MOM. WILL CONTINUE TO FOLLOW
--- NOTE | 2017-06-08 15:39 | NUR ---
IN TO ASSESS PT AND SHE WAS HAVING ANOTHER SEIZURE. DENIES PAIN OR DISCOMFORT. IVF WNL.
--- NOTE | 2017-06-08 16:31 | NUR ---
NIA CARE DONE. PATIENT TURNED ONTO LEFT SIDE.
[2017-06-08] MEDS ORDERED: LORAZEPAM2 MG/1 M2 PO (18:09)
--- NOTE | 2017-06-08 18:45 | NUR ---
PT CHANGED TO DNR\DNI STATUS AFTER FAMILY SIGNS PAPER. SEIZURES LESS FREQUENT TODAY. TURN Q2. REMAINS NPO.
--- NOTE | 2017-06-08 19:50 | NUR ---
RECEIEVED REPORT FROM DAY SHIFT RN. PATIENT IS RESTING IN BED. PATIENT DID NOT VERBALIZING ANYTHING AT THIS TIME. PATIENT APPEARS TO BE IN NO DISTRESS. CALL LIGHT IN REACH.
--- NOTE | 2017-06-08 20:47 | NUR ---
PATIENT IN BED. NURSE IN ROOM.
--- NOTE | 2017-06-08 21:40 | NUR ---
PATIENT ASSESMENT COMPLETED. PATIENTS ATTEND CHANGED. PATIENT WAS INCONTINENT OF URINE. NIA CARE PERFORMED. PATIENT REPOSTIIONED ONTO HER LEFT SIDE. PATIENT TOLERATED ACTIVITY WELL. PATIENT CONTINUES TO BE NPO. PATIENT CONTINUES TO HAVE TWITCHES. PATIENT HAS CONTINUOUS PULSE OX IN PLACE. PATIENTS OXYGEN DID GO BELOW NORMAL LIMITS. PATIENT WAS DOWN TO 83. PATIENT PLACED ON 3L VIA NC AND IS NOW 91%. PLACED CALL TO DR CONTRERAS. NO NEW ORDERS AT THIS TIME. CALL LIGHT IN REACH.
--- NOTE | 2017-06-09 00:16 | NUR ---
PATIENTS ATTEDN CHANGED, NIA CARE PERFORMED. ORAL CARE PERFORMED. PATIENT TOLERATED ACTIVITY WELL. PATIENT GIVEN A WARM BLANKET. PATIENT STATED "YES" WEHN ASKED IF SHE WAS COMFORTABLE.
--- NOTE | 2017-06-09 02:01 | NUR ---
PATIENT REPOSTITIONED. ATTENDS CHANGED. NIA CARE AND ORAL CARE PERFORMED.
--- NOTE | 2017-06-09 03:36 | NUR ---
PATIENT IN BED ASLEEP
--- NOTE | 2017-06-09 04:26 | NUR ---
PATIENT RESTED ON AND OFF THROUGHOUT THE SHIFT. PATIENT PLACED ON 3L VIA NC FOR A DECREASE IN OXYGEN SATURATION. PULSE OX IN PLACE. PATIENT IS NPO. PATIENT TURNED Q2. PATIENT INCONTINENT, ATTEND IN PLACE. PATIENT ANSWERS YES OR NO TO QUESTIONING SPORADICALLY. ORAL CARE PERFORMED OFTEN. IV INFUSING.
--- NOTE | 2017-06-09 04:30 | NUR ---
PATIENTS ATTEND CHANGED AND NIA CARE PERFORMED. ORAL CARE PERFOMED.
--- NOTE | 2017-06-09 06:29 | NUR ---
PATIENTS VITALS TAKEN AND RECORDED. PATIENTS ATTENF CHANGED AND NIA CARE PERFORMED. ORAL CARE PERFORMED. PATIENT DID NOT AWAKEN DURING ACTIVITY.
--- NOTE | 2017-06-09 07:10 | NUR ---
BEDSIDE HANDOFF REPORT RECEIVED FROM SIZE CUTTER RN. PT SLEEPING, LEFT UNDISTURBED.
--- NOTE | 2017-06-09 09:35 | NUR ---
PT RESTING IN BED, FAMILY AT BEDSIDE, REQUESTING UPDATE, PROVIDED. PT UNRESPONSIVE TO VOICE, EYES WITH LEFT GAZE, FACIAL AND LEFT FOOT TWITCHING, LASTED FOR APPROXIMATELY 2 MINUTES, SEIZURE, IV KEPPRA INFUSED. PT ON 1L NC, O2 SATS 91%. LUNG SOUNDS CLEAR, PT WITH YELLOW SPUTUM ON GOWN. BOWEL TONES ACTIVE, NPO. FAMILY DENIES NEEDS AT THIS TIME.
--- NOTE | 2017-06-09 10:00 | NUR ---
GENERAL INTERNAL MEDICINE DOCTOR BHANU IS PROVIDING ALL CARE CURRENTLY. BHANU REPORTED TO ME SHE CHARTED VITALS AND I&O's.
--- NOTE | 2017-06-09 12:38 | NUR ---
PT RESTING IN BED. WITNESSED SEIZURE WITH LEFT GAZE FOR APPROXIMATELY 1 MINUTE. PT DECLINES PAIN.
--- NOTE | 2017-06-09 13:26 | NUR ---
FAMILY MOTIONED ME INTO PT'S RM. SON, DAUGHTER, DAUGHTER IN LAW AND PARENTS WERE PRESENT. ERASMO-DAUGHTER WAS SITTING BY PT, STROKING HER HAIR. PT IS TO BE TRANSFERRED TO [facility] TODAY. I ENCOURAGED FAMILY TO REGULARILY CHECK IN ON PT, AT ANY SNF SHE MIGHT BE AT. ALSO MAKE A CLEAR UNDERSTANDING ON THEIR PART ABOUT THE LEVEL OF CARE PT IS TO RECEIVE. THIS HAS BEEN A DIFFICULT TIME ON THE FAMILY. THEY LOST A SON EARLIER THIS YEAR. DEBRIEFED THE FAMILY, HAD GOOD VISIT. STUDENT RN'S CAME IN TO TURN PT, EXTENDED A BLESSING TO FAMILY. WILL FOLLOW NEEDED
--- NOTE | 2017-06-09 13:49 | NUR ---
Family present in room. Let them know I was coming to reposition patient and change attends. Patient resting in bed. Attend changed. Positioned supine with pillows under each side to float to help keep pressure off of coccyx.
--- NOTE | 2017-06-09 14:22 | NUR ---
Attend changed, barrier cream applied. Positioned supine, floating on pillows.
--- NOTE | 2017-06-09 14:23 | NUR ---
Attend changed, barrier cream applied. Blanchable red area on coccyx, stage 1 pressure ulcer.
--- NOTE | 2017-06-09 14:30 | NUR ---
PT RESTING IN BED. PT ANSWERING QUESTIONS, DENIES PAIN. PT ABLE TO FOLLOW COMMAND, ABLE TO SQUEEZE RIGHT HAND. 02 SATS 98% ON 2L NC, WEANED TO 1L.
--- NOTE | 2017-06-09 15:40 | NUR ---
Attends changed, applied barrier cream to blanchable red area on coccyx. Turned to left side.
--- NOTE | 2017-06-09 16:30 | NUR ---
PT SON REQUESTING TO SPEAK TO DR. CONTRERAS ABOUT POSSIBLE PICC LINE AND TO DISCUSS PROGRESS OF SPEECH EVALUATION WITH NILES SWALLOW. DISCUSSED WITH SON THAT BARRIUM SWALLOW HAS NOT BEEN PERFORMED DUE TO PT INABILITY TO COOPERATE WITH BEDSIDE SWALLOW EVAL. EDUCATED ON WHAT A PICC LINE IS, HOW IT IS PLACED AND POSSIBLE RISKS ASSOCIATED WITH PICC LINE. DR CONTRERAS SPOKE WITH SON, ABOUT PICC LINE AND SWALLOW EVAL, DR. CONTRERAS TO ORDER PICC LINE. SPEECH THERAPY HAS NOT BEEN INTO EVALUATE PT TODAY, CALLED SPEECH THERAPY, MESSAGE LEFT TO RETURN CALL. SON NOTFIED AND WILL BE CALLED WITH UPDATE ON SPEECH THERAPY.
--- NOTE | 2017-06-09 17:54 | NUR ---
PATIENT RESTING COMFORTABLY WITH EYES OPEN. ATTEND CHANGED AND BARRIER CREAM APPLIED. COCCYX REMAINS RED AND BLANCHABLE, UNOPENED. REPOSITIONED TO RIGHT SIDE. NO SIGNS OR COMPLAINTS OF PAIN. ORAL CARE PERFORMED AND CHAPSTICK APPLIED TO LIPS.
--- NOTE | 2017-06-09 18:20 | NUR ---
SON CALLED, PROVIDED UPDATE ON SPEECH EVALUATION. SON VERBALIZED UNDERSTANDING OF EVALUATION.
--- NOTE | 2017-06-09 18:46 | NUR ---
NO ACTUTE CHANGES THIS SHIFT. PT ON 1L NC, O2 SATS >90%, LUNG SOUNDS CLEAR. PT CONTINUES TO HAVE SEIZURES, IV KEPPRA GIVE. SPEECH EVALUATION COMPLETED, CONTINUES TO RECOMMEND NPO, UNABLE TO MANAGE SECRETIONS. PT INCONTINENT OF URINE, QS.
--- NOTE | 2017-06-09 20:00 | NUR ---
RECEIVED REPORT AT 1900. FUND PT IN BED NON ABLE TO RESPOND TO ANY QUESTIONS ASKED. HER GAZE WAS VERY MUCH TO HER LEFT.
--- NOTE | 2017-06-09 21:28 | NUR ---
ROUNDED ON PATIENT CHARGE. PATIENT IS NON REPSPONSIVE TO QUESTIONING AT THIS TIME. BREATHING EVEN AND UNLABORED.
--- NOTE | 2017-06-09 22:00 | NUR ---
V/S ARE WDL, O2 SATS ON 1L OF O2 ARE >90%, PT ONLY AT TIMES IS ABLE TO ANSWER 'YES" OR "NO" TO QUESTIONS ASKED. DURING THE ASSESSMENT PT DENIED PAIN, ALL LOBES HAVE CRACKLES, RIGHT PUPIL IS 1MM NON-REACTIVE, LEFT PUPIL IS 3MM REACTIVE. PT HAS NO MOVEMENT IN ALL FOUR EXTREMETIES. PT IS NPO, MOUTH CARE WAS DONE BY ME SO FAR X1.
--- NOTE | 2017-06-10 00:57 | NUR ---
PT IS AWAKE IN BED AT THIS TIME BUT NOT ABLE TO COMMUNICATE AT ALL. PT EYES DID FOCUS ON ME NO LEFT DRIFT NOTED DURING THIS ENCOUNTER. PT BRIEF WAS DRY DURING THIS ENCOUNTER.
--- NOTE | 2017-06-10 01:11 | NUR ---
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 ORAL CARE WITH SWABS WAS DONE WELL.
--- NOTE | 2017-06-10 02:56 | NUR ---
PT IS AWAKE IN BED NOT VERBAL AT ALL AT THIS TIME.
--- NOTE | 2017-06-10 06:27 | NUR ---
V/S ARE WDL. PT IS NOT ABLE TO MOVE ANY OF HER LIMBS, PT ONLY AT TIMES CAN SAY A WORD. FOR THE MOST PART THIS PT IS NOT ABLE TO SPEAK OR COMMUNICATE IN ANY OTHER WAY. PT WAS TURNED AND CHANGED FREQUENTLY THIS SHIFT. ALL LOBES HAVE CRACKLES, PT REMAINES NPO SO FAR. HER GAZE IS STILL MOSTLY TO THE LEFT. IV FLUIDS ARE RUNNING.
--- NOTE | 2017-06-10 07:30 | NUR ---
PATIENT RESTING TO SIDE, APPEARS NON RESPONSIVE TO VERBAL STIMULI, PLAN TO INSERT MIDLINE THIS MORNING. LUNG SOUNDS APPEAR CLEAR THROUGHOUT, STUDENT IN ROOM WITH PATIENT, DISCUSSED POC FOR DAY. POSSIBLE DISCHARGE TO [facility] TODAY.
--- NOTE | 2017-06-10 08:30 | NUR ---
FOOD DEHYDRATOR OPERATOR NOVEMBER WILL BE PROVIDING ALL PT CARE UNTIL 1300. I WILL STILL CHECK ON PT Q2
--- NOTE | 2017-06-10 09:31 | NUR ---
PATIENT RESTING COMFORTABLY IN BED WITH EYES OPENED AND DRIFTED TO THE LEFT. NO SIGNS OF PAIN. PATIENT NON VERBAL AT THIS TIME. WHEN PROMPTED, IS ABLE TO SQUEEZE WITH HER RIGHT HAND. REPOSITIONED AND ATTENDS CHANGED AT THIS TIME.
--- NOTE | 2017-06-10 10:30 | NUR ---
MIDLINE INSERTION NOTE: ASKED BY DR. CONTRERAS TO EVALUATE PATIENT FOR POTENTIAL MIDLINE PLACEMENT. AFTER REVIEWING THE CHART AND DISCUSSING THE PATIENT'S CONDITION WITH THE NURSE CARING FOR HER, NO ABSOLUTE CONTRAINDICATIONS WERE NOTED. PATIENT IS UNFORTUNATELY NONVERBAL AT THIS TIME DUE TO ACUTE ILLNESS AFTER SUFFERING FROM A CVA, THEREFORE NOT ABLE TO PROVIDE A WRITTEN CONSENT. PT'S DAUGHTER, ERASMO LEDBETTER, CALLED AND DISCUSSED OVER THE PHONE THE PROPOSED MIDLINE CATHETER. RISKS, BENEFITS, AND BRIEF DISCRIPTION OF THE PROCEDURE EXPLAINED AND DISCUSSED, AND VERBAL CONSENT OBTAINED FROM ERASMO. PATIENT'S RIGHT ARM WAS EVALUTED FIRST USING THE SITE RITE U/S MACHINE. PATIENT'S BASILIC VEIN WAS NOTED TO BE AT LEAST 8 FR BY THE U/S GUIDE. THE BASILIC VEIN WAS ACCESSED WITHOUT DIFFICULTY, WELL THE GUIDEWIRE, INTRODUCER AND 3 FR MIDLINE CATHETER. CATHETER WAS TRIMMED TO 16 CM PRIOR TO INSERTION, BASED ON MEASURING THE PATIENT'S ARM AND APPROXIMATE END SITE OF CATHETER. PATIENT TOLERATED THIS PROCEDURE WELL. UPDATE GIVEN TO FAMILY INCLUDING ERASMO LEDBETTER AND PAOLO LEDBETTER, PATIENT'S SON, ABOUT THE PROCEDURE. ALL QUESTIONS ANSWERED BEST POSSIBLE. REPORT GIVEN TO ANSHU PEREZ, WHO IS CARING FOR THIS PATIENT. D/C INSTRUCTIONS PROVIDED AND ENCOURAGED TO PASS ON TO [facility], WHERE THIS PATIENT WILL BE RESIDING UPON DISCHARGE.
--- NOTE | 2017-06-10 12:30 | NUR ---
PATIENT FAMILY AT BEDSIDE, DR. CONTRERAS ROUNDED. ADDRESSED QUESTIONS AND CONCERNS. STUDENT NURSE AND INSTRUCTOR PROVIDED PATIENT CARE, TURNING AND ORAL CARE. PATIENT APPEARS COMFORTABLE, RESTING FLOATED ON PILLOWS. VS STABLE.
--- NOTE | 2017-06-10 12:53 | NUR ---
PATIENT RESTING IN BED, FAMILY PRESENT AT BEDSIDE. FAMILY LEFT ROOM FOR CARE. PATIENT REPOSITIONED SUPINE FLOATING ON PILLOWS, AND ATTEND CHANGED. IV FLUIDS RUNNING IN MIDLINE IV SITE. PATIENT FAINTLY VERBALIZED HAVING NO PAIN AT THIS TIME. FOUND A BRUISE ON PATIENT'S LEFT SIDE NEAR AND ON BREAST. BRUISE IS DARK PURPLE IN COLOR. REPORTED CARE TO CHRIS BRASHER.
--- NOTE | 2017-06-10 12:57 | NUR ---
PT LAYING IN BED, UNRESPONSIVE. FAMILY ARRIVED WHILE I WAS PRESENT. PICC LINE INSTALLED THIS MORNING, AWAITING NEW ORDERS FROM DR AND THEN TRANSFER TO T. SON PAOLO REQUESTED HOW MANY TIMES S.T. HAD BEEN IN WITH PT. DRY CELL SEALER OMEGA NOTED 2, AND ONE MORE SCHEDULED TODAY. HE SEEMED SATISFIED. PARENTS CAME, I WILL BE AVAILABLE NEEDED
--- NOTE | 2017-06-10 13:54 | NUR ---
PT IS RESTING SAFELY IN BED WITH CALL LIGHT IN REACH ADN FAMILY IN ROOM. A WARM WASH CLITH WAS USED TO CLEAN PT'S EYES UPON FAMILY'S REQUEST.
--- NOTE | 2017-06-10 14:50 | NUR ---
REPORT TO IAM BRASHER AT [facility], PATIENT TRANSFERED [facility]. DISCUSSED BACKGROUND, AND MIDLINE BEING PLACED TODAY FOR IV THERAPY. ANSWERED QUESTIONS AND CONCERNS WITH MEDICATIONS. VS STABLE.
== END 2017-06-10 14:10 | DRG 64 ==
LOC: ED 12:28 → CCU 17:05 → MS 06-04 14:15
PROVIDERS: ADMIT Internal Medicine
PROC: 06HY33Z Insertion of Infusion Device into Lower Vein, Percutaneous Approach (ICD-10-PCS; principal; 2017-06-10 09:30)
DX: I63.9 Cerebral infarction, unspecified (principal); G93.41 Metabolic encephalopathy; G81.94 Hemiplegia, unspecified affecting left nondominant side; E46 Unspecified protein-calorie malnutrition; E87.2 Acidosis; G40.109 Localization-related (focal) (partial) symptomatic epilepsy and epileptic syndromes with simple partial seizures, not intractable, without status epilepticus; R13.12 Dysphagia, oropharyngeal phase; R47.1 Dysarthria and anarthria; I10 Essential (primary) hypertension; E83.42 Hypomagnesemia; E87.6 Hypokalemia; E83.39 Other disorders of phosphorus metabolism; T79.6XXA Traumatic ischemia of muscle, initial encounter; W19.XXXA Unspecified fall, initial encounter; Z91.81 History of falling; F10.20 Alcohol dependence, uncomplicated; Z79.82 Long term (current) use of aspirin; E86.0 Dehydration; Z66 Do not resuscitate
CPT/HCPCS: 36415; 36569; 51702; 70450; 70551; 71010; 80053; 80061; 80069; 80176; 81001; 82010; 82306; 82550; 82607; 82728; 82746; 83036; 83540; 83605; 83735; 84425; 84466; 84484; 85025; 85045; 87040; 92526; 92610; 93005; 93010; 93306; 93880; 96361; 96365; 96366; 96368; 97110; 97163; 97166; 97530; 99285; G0480; J0456; J0696; J1650; J1953; J2060; J2405; J3411; J3475; J3480; J7030; J7042; J7060; J7120

== ENCOUNTER → 2017-07-07 | Emergency (ER) | payer OTHER ==
[~2017-07-07] VITALS: Ht 167.6 cm; Wt 46.3 kg
[~2017-07-07] MED LIST changes: +ASPERCREME HE70.8 GM TOP; +LORAZEPAM2 MG/1 M2 PO
--- OUTSIDE RECORDS SUMMARY | 2017-07-07 23:24 | XMS | Encounter Summary ---
Demographics + + + | Address | [address] | | | [place] [address] | + + + | Home Phone | | + + + | Preferred Language | Unknown | + + + | Marital Status | Unknown | + + + | Baptist Affiliation | Unknown | + + + | Race | Unknown | + + + | Ethnic Group | Unknown | + + + Author + + + | Author | [facility] | + + + | Organization | [facility] | + + + | Address | Unknown | + + + | Phone | Unavailable | + + + Care Team Providers + +------+ + | Care Scaler Packer Name | Role | Phone | + +------+ + PCP | Unavailable | + +------+ + Reason for Visit +--------+ + | Reason | Comments | +--------+ + | Stroke | | +--------+ + Encounter Details +--------+ + + + + | Date | Type | Department | Care Team | Description | +--------+ + + + + | 06/06/ | Emergency | [facility] Emergency | | | | 2016 - | | Department [address] | | | | | [address] | | | | 06/07/ | | [facility] | | | | 2016 | | [place] [address] | | | | | | [phone] | | | +--------+ + + + + Social History + +-------+ +--------+------+ | Tobacco Use | Types | Packs/Day | Years | Date | | | | | Used | | + +-------+ +--------+------+ | Never Assessed | | | | | + +-------+ +--------+------+ + + + | Sex Assigned at | Date Recorded | | | | + + + | Not on file | | + + + as of this encounter Plan of Treatment Not on fileas of this encounter Visit Diagnoses Not on filein this encounter"
--- NOTE | 2017-07-08 20:38 | EKG ---
[facility] [address] [place] [address] Signed Normal sinus rhythm Low voltage QRS Cannot rule out Anterior infarct , age undetermined Abnormal ECG When compared with ECG of 03-JUN-2017 13:17, Minimal criteria for Anterior infarct are now present QT has shortened Confirmed by LILA CONTRERAS MD ([id number]) on 07/08/2017 8:38:15 PM Electronically Signed By: LILA CONTRERAS MD 07/08/17 2038 PATIENT NAME: CHIDI LEDBETTER WILLIAM Electrocardiogram DATE OF : 62 PHYSICIAN: LILA CONTRERAS MD REPORT #: [id number] REPORT IS CONFIDENTIAL AND NOT TO BE RELEASED WITHOUT AUTHORIZATION
== END ==
LOC: ED 19:53
DX: R07.9 Chest pain, unspecified (principal); F32.9 Major depressive disorder, single episode, unspecified; Z87.891 Personal history of nicotine dependence; Z88.1 Allergy status to other antibiotic agents; Z79.899 Other long term (current) drug therapy; Z79.82 Long term (current) use of aspirin
CPT/HCPCS: 36415; 71010; 80053; 84484; 85025; 85610; 85730; 93005; 93010; 96374; 99284

== ENCOUNTER 2017-07-09 03:02 | Emergency (ER) | payer OTHER ==
[~2017-07-09] VITALS: Ht 167.6 cm; Wt 51.3 kg
--- OUTSIDE RECORDS SUMMARY | ~2017-07-09 | XMS | Clinical Summary ---
Demographics + + + | Address | [address] | | | [place] [address] | + + + | Home Phone | | + + + | Preferred Language | Unknown | + + + | Marital Status | Unknown | + + + | Moravian Affiliation | Unknown | + + + [...] Team Providers + +------+ + | Care Tool Designer Name | Role | Phone | + +------+ + PP | Unavailable | + +------+ + Source Comments FREIDA is fully live on both [facility] and [facility] InPatient.[facility] Allergies Not on File Current Medications Not on file Active Problems Not on file Encounters +--------+ + + + + | Date | Type | Specialty | Care Team | Description | +--------+ + + + + | 06/06/ | Emergency | | | | | 2016 - | | | | | | | | | | | | 06/07/ | | | | | | 2016 | | | | | +--------+ + + + + from Last 3 Months Social History + +-------+ +--------+------+ | Tobacco [...]
--- OUTSIDE RECORDS SUMMARY | ~2017-07-09 | XMS | Encounter Summary ---
Demographics + + + | Address | [address] | | | [place] [address] | + + + | Home Phone | | + + + | Preferred Language | Unknown | + + + | Marital Status | Unknown | + + + | Zoroastrian Affiliation | Unknown | + + + | Race | Unknown | + + + | Ethnic Group | Unknown | + + + Author + + + | Author | [facility] | + + + | Organization | [facility] | + + + | Address | Unknown | + + + | Phone | Unavailable | + + + Care Team Providers + +------+ + | Care Tank Builder Helper Name | Role | Phone | + +------+ + PCP | Unavailable | + +------+ + Reason for Visit +--------+ + | Reason | Comments | +--------+ + | Stroke | | +--------+ + Encounter Details +--------+ + + + + | Date | Type | Department | Care Team | Description | +--------+ + + + + | 06/06/ | Emergency | [facility] Emergency | | | | 2016 - | | Department [address] | | | | | [address] | | | | 06/07/ | | [facility] | | | | 2016 | | [place] [address] | | | | | | [phone] | | | +--------+ + + + [...]
[~2017-07-09 03:02] MED LIST changes: -ASPERCREME HE70.8 GM TOP
[2017-07-09] MEDS ORDERED: ASPERCREME HE70.8 GM TOP (04:23)
== END 2017-07-09 06:00 ==
LOC: ED 03:02
DX: Z45.2 Encounter for adjustment and management of vascular access device (principal); Z87.891 Personal history of nicotine dependence; Z90.49 Acquired absence of other specified parts of digestive tract; Z88.1 Allergy status to other antibiotic agents; Z79.82 Long term (current) use of aspirin; Z79.899 Other long term (current) drug therapy
CPT/HCPCS: 36556; 36569; 99285

== ENCOUNTER 2017-09-08 21:52 | Emergency (ER) | payer OTHER ==
[~2017-09-08] VITALS: Ht 167.6 cm; Wt 51.5 kg
--- OUTSIDE RECORDS SUMMARY | ~2017-09-08 | XMS | Clinical Summary ---
Demographics + + + | Address | [address] | | | [place] [address] | + + + | Home Phone | | + + + | Preferred Language | Unknown | + + + | Marital Status | Unknown | + + + | Restorationist Affiliation | Unknown | + + + [...] Team Providers + +------+ + | Care Applied Behavior Science Specialist Name | Role | Phone | + +------+ + PP | Unavailable | + +------+ + Source Comments FREIDA is fully live on both [facility] and [facility] InPatient.[facility] Allergies Not on File Current Medications Not [...]
--- OUTSIDE RECORDS SUMMARY | ~2017-09-08 | XMS | Clinical Summary ---
Demographics + + + | Address | [address] | | | [place] [address] | + + + | Home Phone | | + + + | Preferred Language | Unknown | + + + | Marital Status | Unknown | + + + | Spiritism Affiliation | Unknown | + + + [...] Team Providers + +------+ + | Care Logistics Program Manager Name | Role | Phone | + +------+ + PP | Unavailable | + +------+ + Source Comments FREIDA is fully live on both [facility] and [facility] InPatient.[facility] & [facility] Allergies Not on File Current Medications [...]
[~2017-09-08 21:52] MED LIST changes: +ASPERCREME HE70.8 GM TOP
[2017-09-09] MEDS ORDERED: ACETAMINOPHEN650 M1 PO (01:20)
[2017-09-09] MEDS ORDERED: AMITRIPTYLINE H75 MG PO (01:21)
[2017-09-09] MEDS ORDERED: ASPIRIN81 MG PO (01:21)
[2017-09-09] MEDS ORDERED: LACTULOSE10 GM/15 M PO (01:25)
[2017-09-09] MEDS ORDERED: DULCOLAX10 MG PR (01:28)
[2017-09-09] MEDS ORDERED: ATIVAN1 MG PO (17:27)
== END 2017-09-09 06:09 | disposition home or self-care (01) ==
LOC: ED 21:52
DX: Z00.00 Encounter for general adult medical examination without abnormal findings (principal); F32.9 Major depressive disorder, single episode, unspecified; Z87.891 Personal history of nicotine dependence; Z88.1 Allergy status to other antibiotic agents; Z79.899 Other long term (current) drug therapy; Z79.82 Long term (current) use of aspirin
CPT/HCPCS: 99283

== ENCOUNTER 2017-09-09 13:35 | Emergency (ER) | payer OTHER ==
[~2017-09-09] VITALS: Ht 167.6 cm; Wt 51.3 kg
--- OUTSIDE RECORDS SUMMARY | ~2017-09-09 | XMS | Clinical Summary ---
Demographics + + + | Address | [address] | | | [place] [address] | + + + | Home Phone | | + + + | Preferred Language | Unknown | + + + | Marital Status | Unknown | + + + | Uatsdin Affiliation | Unknown | + + + [...] Team Providers + +------+ + | Care Post Doctoral Fellow Name | Role | Phone | + +------+ + PP | Unavailable | + +------+ + Source Comments FREIDA is fully live on both [facility] and [facility] InPatient.[facility] & [facility] Allergies Not on File Current Medications Not [...] | | | | (FLU SHOT) | 7 | | | + + + + + Results Not on filefrom Last 3 Months"
--- OUTSIDE RECORDS SUMMARY | ~2017-09-09 | XMS | Clinical Summary ---
Demographics + + + | Address | [address] | | | [place] [address] | + + + | Home Phone | | + + + | Preferred Language | Unknown | + + + | Marital Status | Unknown | + + + | Yazdanism Affiliation | Unknown | + + + [...] Team Providers + +------+ + | Care Clamshell Engineer Name | Role | Phone | + +------+ + PP | Unavailable | + +------+ + Source Comments FREIDA is fully live on both [facility] and [facility] InPatient.Counts Include [facility] Beds At [facility] & [facility] Allergies Not on File Current Medications Not [...]
[~2017-09-09 13:35] MED LIST changes: +ACETAMINOPHEN650 M1 PO; +AMITRIPTYLINE H75 MG PO; +ASPIRIN81 MG PO; +DULCOLAX10 MG PR; +LACTULOSE10 GM/15 M PO
[2017-09-09] MEDS ORDERED: ATIVAN1 MG PO (17:27)
== END 2017-09-09 18:00 | disposition home or self-care (01) ==
LOC: ED 13:35
PROC: 0T9B70Z Drainage of Bladder with Drainage Device, Via Natural or Artificial Opening (ICD-10-PCS; principal; 2017-09-09)
DX: G93.40 Encephalopathy, unspecified (principal); F32.9 Major depressive disorder, single episode, unspecified; Z87.891 Personal history of nicotine dependence; Z88.0 Allergy status to penicillin; Z79.82 Long term (current) use of aspirin; Z79.899 Other long term (current) drug therapy
CPT/HCPCS: 36415; 51701; 70450; 70470; 80053; 80176; 81001; 82140; 84443; 85025; 96374; 96375; 99284; G0480; J1200; J2060

== ENCOUNTER 2018-04-22 23:38 | Emergency (ER) | payer OTHER ==
[~2018-04-22] VITALS: Ht 167.6 cm; Wt 51.5 kg
--- OUTSIDE RECORDS SUMMARY | ~2018-04-22 | XMS | Clinical Summary ---
Demographics + + + | Address | [address] | | | [place] [address] | + + + | Home Phone | | + + + | Preferred Language | Unknown | + + + | Marital Status | Unknown | + + + | Adventism Affiliation | Unknown | + + + | Race | Unknown | + + + | Ethnic Group | Unknown | + + + Author + + + | Author | [facility] | + + + | Organization | [facility] | + + + | Address | Unknown | + + + | Phone | Unavailable | + + + Care Team Providers + +------+ + | Care Survey Technologist Name | Role | Phone | + +------+ + PP | Unavailable | + +------+ + Source Comments FREIDA is fully live on both [facility] and [facility] InPatient.[facility] Allergies Not on File Current Medications Not on file Active Problems Not on file Social History + +-------+ +--------+------+ | Tobacco [...] on file | | + + + Plan of Treatment + + + + + | Health Maintenance | Due Date | Last Done | Comments | + + + + + | INFLUENZA VACCINE | | | | | (FLU SHOT) | 8 | | | + + + + + Results Not on filefrom Last 3 Months"
--- OUTSIDE RECORDS SUMMARY | ~2018-04-22 | XMS | Clinical Summary ---
Demographics + + + | Address | [address] | | | [place] [address] | + + + | Home Phone | | + + + | Preferred Language | Unknown | + + + | Marital Status | Unknown | + + + | Confucianist Affiliation | Unknown | + + + [...] Team Providers + +------+ + | Care Brush Holder Assembler Name | Role | Phone | + +------+ + PP | Unavailable | + +------+ + Source Comments FREIDA is fully live on both [facility] and [facility] InPatient.[facility] & [facility] Allergies Not on File Current Medications Not [...]
[~2018-04-22 23:38] MED LIST changes: +ATIVAN1 MG PO
--- OUTSIDE RECORDS SUMMARY | 2018-04-22 23:42 | XMS ---
PreManage Notification: CHIDI LEDBETTER Security Press Clipper Events No recent Security Events currently on file CRITERIA MET - Group Notification CARE PROVIDERS MENDOZA MOORERELL Primary Care 05/10/2017-Current PHONE: [phone] Angel Dolan Current PHONE: Unknown [facility] Other Current [facility] PHONE: Unknown Lesly has no Care Guidelines for this patient. EBeatriz. VISIT COUNT (12 MO.) 8 [facility] Ramirez TOTAL 8 NOTE: Visits indicate total known visits. ED/UCC VISIT TRACKING (12 MO.) 04/22/2018 23:38 [facility] [place] TYPE: Emergency COMPLAINT: - FALL 09/09/2017 13:36 [facility] [place] TYPE: Emergency COMPLAINT: - WORK UP DIAGNOSES: - Other terminal gauger (current) drug therapy - Disorientation, unspecified - Encephalopathy, unspecified - CHCF (current) use of aspirin - Allergy status to penicillin - Personal history of nicotine dependence - Major depressive disorder, single episode, unspecified 09/08/2017 21:52 [facility] [place] TYPE: Emergency COMPLAINT: - MEDICAL CLEARANCE DIAGNOSES: - Personal history of nicotine dependence - Encounter for general adult medical examination without abnormal findings - Other detention (current) drug therapy - Restlessness and agitation - CHCF (current) use of aspirin - Major depressive disorder, single episode, unspecified - Headache - Allergy status to other antibiotic agents status 07/09/2017 03:02 [facility] [place] TYPE: Emergency COMPLAINT: - PICC LINE PROBLEM DIAGNOSES: - CHCF (current) use of aspirin - Acquired absence of other specified parts of digestive tract - Encounter for adjustment and management of vascular access device - Other terminal gauger (current) drug therapy - Personal history of nicotine dependence - Allergy status to other antibiotic agents status 07/07/2017 19:54 [facility] [place] TYPE: Emergency COMPLAINT: - CHEST PAIN DIAGNOSES: - Personal history of nicotine dependence - Major depressive disorder, single episode, unspecified - Allergy status to other antibiotic agents status - Chest pain, unspecified - CHCF (current) use of aspirin - Other detention (current) drug therapy 06/03/2017 12:28 [facility] [place] TYPE: Emergency COMPLAINT: - ALOC 05/31/2017 08:19 [facility] [place] TYPE: Emergency COMPLAINT: - ALTERED LOC DIAGNOSES: - CHCF (current) use of aspirin - Alcohol dependence, uncomplicated - Nicotine dependence, unspecified, uncomplicated - Presence of left artificial hip joint - Major depressive disorder, single episode, unspecified - Other detention (current) drug therapy - Altered mental status, unspecified - Allergy status to other antibiotic agents status 05/29/2017 18:16 [facility] [place] TYPE: Emergency COMPLAINT: - WEAKNESS DIAGNOSES: - Hypokalemia - Alcohol abuse, uncomplicated - Nicotine dependence, unspecified, uncomplicated - Major depressive disorder, single episode, unspecified - exterminator (current) use of aspirin - Acquired absence of other specified parts of digestive tract - Blood alcohol level of less than 20 mg/100 ml - Presence of left artificial hip joint - Allergy status to other antibiotic agents status INPATIENT VISIT TRACKING (12 MO.) No inpatient visits to display in this time frame [email or web address]
[2018-04-23] MEDS ORDERED: POTASSIUM CHLO20 ME1 PO (03:18)
== END 2018-04-23 06:03 | disposition home or self-care (01) ==
LOC: ED 23:38
DX: S76.012A Strain of muscle, fascia and tendon of left hip, initial encounter (principal); I10 Essential (primary) hypertension; Z87.891 Personal history of nicotine dependence; Z88.0 Allergy status to penicillin; Z79.82 Long term (current) use of aspirin; Z79.899 Other long term (current) drug therapy; W01.0XXA Fall on same level from slipping, tripping and stumbling without subsequent striking against object, initial encounter
CPT/HCPCS: 73700; 80053; 82140; 85025; 96360; 96361; 99284; J7030

== ENCOUNTER 2018-04-25 13:33 | Emergency (ER) | payer OTHER ==
[~2018-04-25] VITALS: Ht 167.6 cm; Wt 51.5 kg
[~2018-04-25 13:33] MED LIST changes: +POTASSIUM CHLO20 ME1 PO
--- OUTSIDE RECORDS SUMMARY | 2018-04-25 13:38 | XMS ---
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 E.D. VISIT COUNT (12 MO.) 9 SACHA Ramirez TOTAL 9 NOTE: Visits indicate total known visits. ED/UCC VISIT TRACKING (12 MO.) 04/25/2018 13:33 [facility] [place] TYPE: Emergency COMPLAINT: - ABNORMAL LABS 04/22/2018 23:38 [facility] [place] TYPE: Emergency COMPLAINT: - FALL 09/09/2017 13:36 [facility] [place] TYPE: Emergency COMPLAINT: - WORK UP DIAGNOSES: - Other drawing in machine tender helper (current) drug therapy - Disorientation, unspecified - Encephalopathy, unspecified - [facility] (current) use of aspirin - Allergy status to penicillin - Personal history of nicotine dependence - Major depressive disorder, single episode, unspecified 09/08/2017 21:52 [facility] [place] TYPE: Emergency COMPLAINT: - MEDICAL CLEARANCE DIAGNOSES: - Personal history of nicotine dependence - Encounter for general adult medical examination without abnormal findings - Other drawing in machine tender helper (current) drug therapy - Restlessness and agitation - [facility] (current) use of aspirin - Major depressive disorder, single episode, unspecified - Headache - Allergy status to other antibiotic agents status 07/09/2017 03:02 [facility] [place] TYPE: Emergency COMPLAINT: - PICC LINE PROBLEM DIAGNOSES: - biomedical photographer (current) use of aspirin - Acquired absence of other specified parts of digestive tract - Encounter for adjustment and management of vascular access device - Other drawing in machine tender helper (current) drug therapy - Personal history of nicotine dependence - Allergy status to other antibiotic agents status 07/07/2017 19:54 [facility] [place] TYPE: Emergency COMPLAINT: - CHEST PAIN DIAGNOSES: - Personal history of nicotine dependence - Major depressive disorder, single episode, unspecified - Allergy status to other antibiotic agents status - Chest pain, unspecified - [facility] (current) use of aspirin - Other residential (current) drug therapy 06/03/2017 12:28 [facility] [place] TYPE: Emergency COMPLAINT: - ALOC 05/31/2017 08:19 [facility] [place] TYPE: Emergency COMPLAINT: - ALTERED LOC DIAGNOSES: - biomedical photographer (current) use of aspirin - Alcohol dependence, uncomplicated - Nicotine dependence, unspecified, uncomplicated - Presence of left artificial hip joint - Major depressive disorder, single episode, unspecified - Other residential (current) drug therapy - Altered mental status, unspecified - Allergy status to other antibiotic agents status 05/29/2017 18:[address] [facility] [place] TYPE: Emergency COMPLAINT: - WEAKNESS DIAGNOSES: - Hypokalemia - Alcohol abuse, uncomplicated - Nicotine dependence, unspecified, uncomplicated - Major depressive disorder, single episode, unspecified - [facility] (current) use of aspirin - Acquired absence of other specified parts of digestive tract - Blood alcohol level of less than 20 mg/100 ml - Presence of left artificial hip joint - Allergy status to other antibiotic agents status INPATIENT VISIT TRACKING (12 MO.) No inpatient visits to display in this time frame [id number]
[2018-04-25] MEDS ORDERED: CIPRO500 MG PO (18:17)
[2018-04-26] MEDS ORDERED: XIFAXAN550 MG PO (23:01)
[2018-04-26] MEDS ORDERED: ZONEGRAN100 MG PO (23:01)
== END 2018-04-25 18:40 | disposition home or self-care (01) ==
LOC: ED 13:33
DX: N39.0 Urinary tract infection, site not specified (principal); K74.60 Unspecified cirrhosis of liver; I10 Essential (primary) hypertension; Z87.891 Personal history of nicotine dependence; Z88.0 Allergy status to penicillin; Z79.82 Long term (current) use of aspirin; Z79.899 Other long term (current) drug therapy
CPT/HCPCS: 80053; 81001; 82140; 83605; 83690; 85025; 96361; 96374; 99284; J0696; J7030

== ENCOUNTER 2018-04-26 21:16 | Emergency (ER) | payer OTHER ==
[~2018-04-26] VITALS: Ht 167.6 cm; Wt 51.5 kg
[~2018-04-26 21:16] MED LIST changes: +CIPRO500 MG PO
[2018-04-26] MEDS ORDERED: XIFAXAN550 MG PO (23:01)
[2018-04-26] MEDS ORDERED: ZONEGRAN100 MG PO (23:01)
--- OUTSIDE RECORDS SUMMARY | 2018-04-26 23:13 | XMS ---
PreManage Notification: CHIDI LEDBETTER Security Bran Mixer Events No recent Security Events currently on file CRITERIA MET - Group Notification - [facility] - 2 Visits in 30 Days CARE PROVIDERS ELLIOTT FAULKNER Family Medicine: Sports Medicine 04/25/2018-Current PHONE: [phone] MENDOZA BRUNSON Primary Care 05/10/2017-Current PHONE: [phone] Angel Dolan Current PHONE: Unknown [facility] Other [facility] PHONE: Unknown Lesly has no Care Guidelines for this patient. He VISIT COUNT (12 MO.) 10 SACHA Ramirez TOTAL 10 NOTE: Visits indicate total known visits. ED/UCC VISIT TRACKING (12 MO.) 04/26/2018 21:16 [facility] [place] TYPE: Emergency COMPLAINT: - L HIP/LEG PAIN 04/25/2018 13:33 [facility] [place] TYPE: Emergency COMPLAINT: - ABNORMAL LABS 04/22/2018 23:38 [facility] [place] TYPE: Emergency COMPLAINT: - FALL DIAGNOSES: - Pain in left hip - Allergy status to penicillin - Personal history of nicotine dependence - Essential (primary) hypertension - Strain of muscle, fascia and tendon of left hip, initial encounter - Fall on same level from slipping, tripping and stumbling without subsequent striking against object, initial encounter - Other medical assistant (current) drug therapy - oracle hrms consultant (current) use of aspirin 09/09/2017 13:36 [facility] [place] TYPE: Emergency COMPLAINT: - WORK UP DIAGNOSES: - Other mcc (current) drug therapy - Disorientation, unspecified - Encephalopathy, unspecified - [facility] (current) use of aspirin - Allergy status to penicillin - Personal history of nicotine dependence - Major depressive disorder, single episode, unspecified 09/08/2017 21:52 [facility] [place] TYPE: Emergency COMPLAINT: - MEDICAL CLEARANCE DIAGNOSES: - Personal history of nicotine dependence - Encounter for general adult medical examination without abnormal findings - Other medical assistant (current) drug therapy - Restlessness and agitation - oracle hrms consultant (current) use of aspirin - Major depressive disorder, single episode, unspecified - Headache - Allergy status to other antibiotic agents status 07/09/2017 03:02 [facility] [place] TYPE: Emergency COMPLAINT: - PICC LINE PROBLEM DIAGNOSES: - [facility] (current) use of aspirin - Acquired absence of other specified parts of digestive tract - Encounter for adjustment and management of vascular access device - Other mcc (current) drug therapy - Personal history of nicotine dependence - Allergy status to other antibiotic agents status 07/07/2017 19:54 [facility] [place] TYPE: Emergency COMPLAINT: - CHEST PAIN DIAGNOSES: - Personal history of nicotine dependence - Major depressive disorder, single episode, unspecified - Allergy status to other antibiotic agents status - Chest pain, unspecified - [facility] (current) use of aspirin - Other medical assistant (current) drug therapy 06/03/2017 12:28 [facility] [place] TYPE: Emergency COMPLAINT: - ALOC 05/31/2017 08:19 [facility] [place] TYPE: Emergency COMPLAINT: - ALTERED LOC DIAGNOSES: - oracle hrms consultant (current) use of aspirin - Alcohol dependence, uncomplicated - Nicotine dependence, unspecified, uncomplicated - Presence of left artificial hip joint - Major depressive disorder, single episode, unspecified - Other medical assistant (current) drug therapy - Altered mental status, unspecified - Allergy status to other antibiotic agents status 05/29/2017 18:16 [facility] [place] TYPE: Emergency COMPLAINT: - WEAKNESS DIAGNOSES: - Hypokalemia - Alcohol abuse, uncomplicated - Nicotine dependence, unspecified, uncomplicated - Major depressive disorder, single episode, unspecified - oracle hrms consultant (current) use of aspirin - Acquired absence of other specified parts of digestive tract - Blood alcohol level of less than 20 mg/100 ml - Presence of left artificial hip joint - Allergy status to other antibiotic agents status INPATIENT VISIT TRACKING (12 MO.) No inpatient visits to display in this time frame [id number]
[2018-04-27] MEDS ORDERED: NORCO 5-325 TA1 EACH PO (02:01)
--- NOTE | 2018-04-27 21:10 | EKG ---
[facility] [address] [facility] [place] [address] Signed Sinus tachycardia Otherwise normal ECG When compared with ECG of 07-JUL-2017 20:00, Vent. rate has increased BY 47 BPM Minimal criteria for Anterior infarct are no longer present QT has lengthened Confirmed by HEBER ESPAÑA DO ([id number]) on 04/27/2018 9:10:08 PM Electronically Signed By: HEBER ESPAÑA DO 04/27/182109 PATIENT NAME: CHIDI LEDBETTER Electrocardiogram DATE OF : 62 PHYSICIAN: HEBER ESPAÑA DO REPORT #: [id number] REPORT IS CONFIDENTIAL AND NOT TO BE RELEASED WITHOUT AUTHORIZATION
== END 2018-04-27 02:40 | disposition home or self-care (01) ==
LOC: ED 21:16
PROC: 2W3PX1Z Immobilization of Left Upper Leg using Splint (ICD-10-PCS; principal; 2018-04-26)
PROC: 0T9B70Z Drainage of Bladder with Drainage Device, Via Natural or Artificial Opening (ICD-10-PCS; 2018-04-26)
DX: S72.402A Unspecified fracture of lower end of left femur, initial encounter for closed fracture (principal); W18.30XA Fall on same level, unspecified, initial encounter; F32.9 Major depressive disorder, single episode, unspecified; I10 Essential (primary) hypertension; Z87.891 Personal history of nicotine dependence; Z88.0 Allergy status to penicillin; Z88.8 Allergy status to other drugs, medicaments and biological substances; Z79.899 Other long term (current) drug therapy; Z79.82 Long term (current) use of aspirin
CPT/HCPCS: 29505; 36415; 51701; 73560; 80053; 81001; 82140; 85025; 85610; 85730; 93005; 93010; 96374; 96375; 99284; J1170; J2405

== ENCOUNTER 2018-04-27 16:28 | Inpatient (IN) | payer OTHER ==
[~2018-04-27] VITALS: Ht 167.6 cm; Wt 60.7 kg
[~2018-04-27 16:28] MED LIST changes: +NORCO 5-325 TA1 EACH PO; +XIFAXAN550 MG PO; +ZONEGRAN100 MG PO
--- OUTSIDE RECORDS SUMMARY | 2018-04-27 16:32 | XMS ---
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 He VISIT COUNT (12 MO.) 11 SACHA Ramirez TOTAL 11 NOTE: Visits indicate total known visits. ED/UCC VISIT TRACKING (12 MO.) 04/27/2018 16:29 [facility] [place] TYPE: Emergency COMPLAINT: - LWR ABD PAIN 04/26/2018 21:16 [facility] [place] TYPE: Emergency COMPLAINT: - L HIP/LEG PAIN,NON INJURY 04/25/2018 13:33 [facility] [place] TYPE: Emergency [...] striking against object, initial encounter - Other 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 school 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 - long term care pharmacist (current) use of aspirin 09/09/2017 13:36 [facility] [place] TYPE: Emergency COMPLAINT: - WORK UP DIAGNOSES: - Other longterm (current) drug therapy - Disorientation, unspecified - Encephalopathy, unspecified - long term care pharmacist (current) use of aspirin - Allergy status to penicillin - Personal history of nicotine dependence - Major depressive disorder, single episode, unspecified 09/08/2017 21:52 [facility] [place] TYPE: Emergency COMPLAINT: - MEDICAL CLEARANCE DIAGNOSES: - Personal history of nicotine dependence - Encounter for general adult medical examination without abnormal findings - Other longterm (current) drug therapy - Restlessness and agitation - long term care pharmacist (current) use of aspirin - Major depressive disorder, single episode, unspecified - Headache - Allergy status to other antibiotic agents status 07/09/2017 03:02 [facility] [place] TYPE: Emergency COMPLAINT: - PICC LINE PROBLEM DIAGNOSES: - 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 (current) use of aspirin - Acquired absence of other specified parts of digestive tract - Encounter for adjustment and management of vascular access device - Other 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 school 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 - Personal history of nicotine dependence - Allergy status to other antibiotic agents status 07/07/2017 19:54 [facility] [place] TYPE: Emergency COMPLAINT: - CHEST PAIN DIAGNOSES: - Personal history of nicotine dependence - Major depressive disorder, single episode, unspecified - Allergy status to other antibiotic agents status - Chest pain, unspecified - 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 (current) use of aspirin - Other longterm (current) drug therapy 06/03/2017 12:28 [facility] [place] TYPE: Emergency COMPLAINT: - ALOC 05/31/2017 08:19 [facility] [place] TYPE: Emergency COMPLAINT: - ALTERED LOC DIAGNOSES: - 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 (current) use of aspirin - Alcohol dependence, uncomplicated - Nicotine dependence, unspecified, uncomplicated - Presence of left artificial hip joint - Major depressive disorder, single episode, unspecified - Other longterm (current) drug therapy - Altered mental status, unspecified - Allergy status to other antibiotic agents status 05/29/2017 18:16 [facility] [place] TYPE: Emergency COMPLAINT: - WEAKNESS DIAGNOSES: - Hypokalemia - Alcohol abuse, uncomplicated - Nicotine dependence, unspecified, uncomplicated - Major depressive disorder, single episode, unspecified - long term care pharmacist (current) use of aspirin - Acquired absence of other specified parts of digestive tract - Blood alcohol level of less than 20 mg/100 ml - Presence of left artificial hip joint - Allergy status to other antibiotic agents status INPATIENT VISIT TRACKING (12 MO.) No inpatient visits to display in this time frame [id number]
--- NOTE | 2018-04-27 21:12 | EKG ---
[facility] [address] [facility] [place], [place] [address] Signed Sinus tachycardia with premature atrial complexes Peaked T waves Cannot rule out Inferior infarct , age undetermined Abnormal ECG When compared with ECG of 27-APR-2018 00:49, (Unconfirmed) premature atrial complexes are now present Confirmed by HEBER ESPAÑA DO ([id number]) on 04/27/2018 9:12:12 PM Electronically Signed By: HEBER ESPAÑA DO 04/27/182111 PATIENT NAME: CHIDI LEDBETTER Electrocardiogram DATE OF : 62 PHYSICIAN: HEBER ESPAÑA DO REPORT #: [id number] REPORT IS CONFIDENTIAL AND NOT TO BE RELEASED WITHOUT AUTHORIZATION
--- NOTE | 2018-04-27 21:16 | NUR ---
PATIENT ARRIVED TO FLOOR VIA STRETCHER. TRANSFERED TO BED WITH ASSIST FROM RN CELI AND ANSHU SINGER. PATIENT IS NON-VERBAL, RESPONSIVE TO PAINFUL STIMULI ONLY, MAKES PURPOSEFUL MOVEMENT, RESISTING MOVEMENT BY STAFF. NOW RESTING IN BED, BREATHING IS EVEN, SHALLOW, AND TACHYPNEIC. FLACC SCORE OF 5 WITH MOVEMENT. ASSESSMENT AND VITALS DONE. SPOKE WITH DR. ESPAÑA VIA TELEPHONE, HE STATES THAT PRIORITY OF CARE IS FOR PATIENT TO RECEIVE ENEMA AND RECEIVE 1L BOLUS OF LR X2. ORDERS INITIATED. UPDATED DR. ESPAÑA ABOUT PATIENT BEING UNABLE TO TAKE PO, PO MEDICATIONS DC'd.
--- NOTE | 2018-04-27 22:00 | NUR ---
WHILE GIVING FLEETS ENEMA, PATIENT NOTED TO BE IMPACTED WITH HARD STOOL. AFTER DIGITAL DISIMPACTION, PATIENT WAS ABLE TO VOID LARGE AMOUNT OF FORMED STOOL. ENEMA CONTINUED TO BE UNSUCCESFUL DUE TO IMPACTED STOOL FURTHER UP GI TRACT. NOTIFIED DR. ESPAÑA, LACTULOSE ENEMA TO BE GIVEN INSTEAD OF FLEETS.
--- NOTE | 2018-04-27 23:00 | NUR ---
UPDATED DR. ESPAÑA REGARDING PATIENT'S CONTINUED SEIZURE ACTIVITY DESPITE KEPPRA ADMINISTRATION IN ER, ORDERED X1 DOSE OF 1000 MG IV KEPPRA. PATIENT CONTINUES TO BE RESPONSIVE ONLY TO PAINFUL STIMULI.
--- NOTE | 2018-04-28 | NUR ---
PATIENT RESTING, FLACC SCORE 0 WHILE AT REST. ASSESSMENT AND VITALS DONE. BREATHING IS EVEN AND UNLABORED.
--- NOTE | 2018-04-28 03:10 | NUR ---
DUE TO CONTINUED SEIZURE ACTIVITY DESPITE KEPPRA ADMINISTRATION, 2 MG IV ATIVAN X1 ORDERED PER DR. ESPAÑA.
--- NOTE | 2018-04-28 05:27 | NUR ---
PATIENT REPOSITIONED FOR COMFORT, CLEANED DUE TO INCONTINENCE OF STOOL. CONTINUES TO BE NON-VERBAL, RESPONDS TO PAINFUL STIMULI. NOW RESTING COMFORTABLY, FLACC SCORE OF 0, BREATHING IS EVEN AND UNLABORED.
--- NOTE | 2018-04-28 06:08 | NUR ---
UPDATED DR. ESPAÑA REGARDING PATIENT'S LOW URINE OUTPUT. 1L LR BOLUS X1 TO BE GIVEN.
--- NOTE | 2018-04-28 09:00 | NUR ---
DR. ESPAÑA HERE TO SEE PATIENT. ORDERS RECIEVED. PATIENT REMAINS OBTUNDED. ORDERS RECIEVED TO PLACE NG TUBE. WILL HOLD ENEMAS TILL NG PLACED. PATIENT GRIMANCE WHEN ABD PALPATED. ABD IS VERY FIRM AND RIDGED.
--- NOTE | 2018-04-28 09:10 | NUR ---
NG PLACED TO RIGHT NARE W/O PROBLEMS. RETURN OF 600 ML OF COFFEE GROUND STOMACH CONTENTS. BOLUS OF LR HUNG PER ORDERS.
--- NOTE | 2018-04-28 09:20 | NUR ---
LR BOLUS HUNG PER ORDERS.
--- NOTE | 2018-04-28 09:30 | NUR ---
Avel APODACA RN HERE TO PLACE PICC LINE.
--- NOTE | 2018-04-28 10:20 | NUR ---
PICC LINE PLACED TO RIGHT UPPER INNER FA. CXR DONE FOR LINE PLACEMENT.
--- NOTE | 2018-04-28 10:30 | NUR ---
PARENTS HERE, DR. ESPAÑA HERE TO TALK WITH THEM.
--- NOTE | 2018-04-28 10:45 | NUR ---
ENEMA (BAKING SODA, SUGAR, WATER) GIVEN WITH RETURN OF LARGE AMOUNT OF LIQUID STOOL.
--- NOTE | 2018-04-28 10:46 | NUR ---
PICC INSERTION NOTE. ORDERS RECIEVED TO EVALUATE CHIDI FOR POSSIBLE PICC INSERTION. AFTER REVIEWING THE CHART AND INTERVIEWING THE PRIMARY RN, NO ABSOLUTE CONTRAINDICATIONS WERE FOUND. ALTHOUGH HER KIDNEY FUNCTION IS POOR, DIALYSIS IS NOT IN HER NEAR FUTURE. CHIDI IS UNFORTUNATELY UNABLE TO SIGN HER CONSENT TODAY AND HER FAMILY IS NOT PRESENT CURENTLY. THE LINE IS NEEDED FOR DEFINITIVE ACCESS AND LAB DRAWS LAB HAS BEEN UNABLE TO DRAW BLOOD. DR ESPAÑA AGREED TO SIGN THE CONSENT TODAY. THE RIGHT BASILIC VEIN WAS ACCESSED BUT THE GUIDE WIRE WOULD NOT PASS UP THE VEIN AFTER SEVERAL ATTEMPTS. ATTENTION WAS TURNED TO THE RIGHT BRACHIAL VEIN WHICH WILL ACCEPT THE 5FR PICC PER [facility] THERE WERE NO ISSUES ACCESSING THIS VEIN. THE GUIDE WIRE, INTRODUCER, AND PICC LINE PASSED EASILY UP THE VEIN AND BRISK DARK RED NONPULSATILE BLOOD WAS SEEN FLOWING FROM THE INTRODUCER. MAGNET TRACKING WAS USED AND SHOWED THE LINE IN A CENTRAL LOCATION. A CXR SHOWED THE LINE CURLED INITIALLY AND IN A BETTER POSITION AFTER MANIPULATION ON THE SECOND CXR. RADIOLOGY CLEARED THE LINE FOR USE. A STERILE DRESSING WAS APPLIED AND A NON STERILE LIGHT PRESSURE DRESSING WAS APPLIED TO THE AREA TO REDUCE BLEEDING / BRUSING. REPORT GIVEN TO THE PRIMARY RN.
--- NOTE | 2018-04-28 11:00 | NUR ---
LACTOLOSE ENEMA GIVEN NOW. TURNED TO RIGHT SIDE. REMAINS OBTUNDED. WILL MOVE RIGHT ARM AND RIGHT LEG AT TIMES.
--- NOTE | 2018-04-28 12:15 | NUR ---
PT HAS JUST HAD PICC LINE IN, VISITED WITH PT'S PARENT WAITING TO GO IN AND VISIT WITH DR ESPAÑA. PT PLEASANT, CONCERNED FOR THEIR DAUGHTER. WILL FOLLOW NEEDED
--- NOTE | 2018-04-28 14:17 | NUR ---
PARENTS ARE IN ROOM. PATIENT IS RESTFUL AT THIS TIME. IV CHUN TO R PICC.
--- NOTE | 2018-04-28 17:00 | NUR ---
O2 SAT TO 78, NO DISTRESS NOTED. STIMULATED PATIENT TO TAKE DEEP BREATHS. O2 AT 2 L NC APPLIED.
--- NOTE | 2018-04-28 19:07 | NUR ---
NO SEIZURE ACTIVITTY NOTED TODAY. NG CONTENTS HEMATEST NEG. REPOSITIONED TO RIGHT SIDE EARLIER. FACE IS FLUSHED. REPORT TO NEXT SHIFT.
--- NOTE | 2018-04-28 20:00 | NUR ---
PATIENT IS RESTING IN BED, BREATHING IS TACHYPNEIC, O2 SATURATION IS 95% ON 2L O2 VIA NC. FLACC SCORE OF 5. PRN MORPHINE GIVEN. ASSESSMENT AND VITALS DONE. NGT TO LIS, IVF INFUSING.
--- NOTE | 2018-04-28 20:13 | NUR ---
UPDATED DR. ESPAÑA REGADING PATIENT'S LOW URINE OUTPUT, TACHYPNEA, TACHYCARDIA, CONTINUED SEIZURE ACTIVITY, AND PATIENT ATTEMPTING TO PULL NGT. IN REGARDS TO LOW URINE OUTPUT, PATIENT WILL RECEIVE 1L BOLUS AT 2300, FOR TACHYCARDIA, DR. ESPAÑA WISHES NURSING STAFF TO MAKE SURE PAIN IS BEING ADEQUATELY CONTROLLED WITH PRN MORPHINE. NOTIFED DR. ESPAÑA THAT IV KEPPRA WAS ADMINISTERED EARLY. ALSO RECEIVED 2 MG IV ATIVAN Q4H PRN IF SEIZURE ACTIVITY CONTINUES. IF PATIENT PULLS NGT, STATES THAT IT WILL BE RE-ADDRESSED IN THE MORNING.
--- NOTE | 2018-04-28 21:15 | NUR ---
PATIENT RESTING IN BED, BREATHING IS EVEN AND UNLABORED, O2 SATURATION IS 98% ON 2L O2 VIA NC. FLACC SCORE OF 0.
--- NOTE | 2018-04-28 22:14 | NUR ---
PATIENT HAS FLACC SCORE OF 5, RESTLESS IN BED. PRN MORPHINE GIVEN. RR IS 23, O2 SATURATION IS 97% ON 2L O2 VIA NC.
--- NOTE | 2018-04-28 22:56 | NUR ---
PATIENT RESTING COMFORTABLY IN BED, BREATHING IS EVEN AND UNLABORED. O2 SATURATION IS 97% ON 2L O2 VIA NC. FLACC SCORE OF 0.
--- NOTE | 2018-04-28 23:45 | NUR ---
PATIENT CONTINUES TO HAVE SEIZURE ACTIVITY, PRN ATIVAN GIVEN PER EMAR. RR IS 24, O2 SATURATION IS 96% ON 2L O2 VIA NC.
--- NOTE | 2018-04-29 00:09 | NUR ---
PATIENT RESTING COMFORTABLY IN BED, BREATHING IS EVEN AND UNALABORED. O2 SATURATION IS 95% ON 2L O2 VIA NC, RR IS 24. FLACC SCORE OF 0.
--- NOTE | 2018-04-29 01:06 | NUR ---
ENEMA ADMINISTERED, PATIENT TOLERATED WELL, NO VAGAL RESPONSE NOTED. REPOSITIONED FOR COMFORT. PATIENT NOW RESTING, BREATHING IS EVEN AND UNLABORED, O2 SATURATION IS 97% ON 2L O2 VIA NC, RR IS 24. FLACC SCORE OF 0.
--- NOTE | 2018-04-29 02:00 | NUR ---
PATIENT REPOSITIONED, LINENS CHANGED AFTER ENEMA ADMINISTRATION. NO STOOL OUT FROM ENEMA. PATIENT NOW RESTING IN BED, BREATHING IS EVEN AND UNLABORED, FLACC SCORE OF 0. NGT TO LIS, IVF INFUSING.
--- NOTE | 2018-04-29 02:45 | NUR ---
DR. ESPAÑA TO ROOM TO CHECK ON PATIENT, UPDATED HIM REGARDING PATIENT'S CONTINUED SEIZURE ACTIVITY, MODERATELY IMPROVED AFTER PRN ATIVAN GIVEN. ALSO UPDATED ABOUT PATIENT'S CONTINUED LOW URINE OUTPUT DESPITE 1L LR BOLUS GIVEN AT 2300, INFORMED HIM THAT PATIENT DID NOT HAVE ANY STOOL OUTPUT AFTER LACTULOSE ENEMA. PATIENT IS TO RECEIVE IV KEPPRA IN AM, MD TO REVIEW KIDNEY FUNCTION LABS IN AM, NURSING STAFF TO CONTINUE TO MONITOR HOURLY OUTPUT, INFORM MD OF OUTPUT PER ORDER.
--- NOTE | 2018-04-29 04:21 | NUR ---
PATIENT GIVEN PRN ATIVAN DUE TO INCREASING SEIZURE ACTIVITY.. RR IS 26, O2 SATURATION IS 97% ON 2L O2 VIA NC. FLACC SCORE OF 0.
--- NOTE | 2018-04-29 06:28 | NUR ---
PATIENT HAS FLACC SCORE OF 5, PRN MOPHINE GIVEN PER EMAR. REPOSITIONED FOR COMFORT.
--- NOTE | 2018-04-29 07:03 | NUR ---
PATIENT REPOSITIONED, LINENS CHANGED DUE TO SMALL AMOUNT OF STOOL INCONTINENCE.
--- NOTE | 2018-04-29 08:15 | NUR ---
PT RESP RATE UP TO 34-38, PRN ATIVAN GIVEN FOR POSSIBLE SIEZURE ACTIVITY.
--- NOTE | 2018-04-29 08:54 | NUR ---
IV SITE IN RT ARM DC'D DUE TO PICC LINE PLACED ABOVE IN RT ARM. TIP OF CATH INTACT. PICC LINE INTACT, BLOOD RETURN OBTAINED, FLUIDS AND FLUSHES INFUSE EASILY, SITE INTACT, NO REDNESS OR SWELLING NOTED. IV SITE IN LEFT ARM INTACT, FLUSHES EASILY, NO REDNESS OR SWELLING NOTED. PT REMAINS OBTUNDED, DOES NOT RESPOND TO VERBAL STIMULUS.
--- NOTE | 2018-04-29 10:48 | NUR ---
pt sleeping soundly at this time, snoring softly. vitals wnl, no grimace noted on pt face, resp rate wnl.
[2018-04-29] MEDS ORDERED: CIPRO500 MG PO (11:03)
[2018-04-29] MEDS ORDERED: ATIVAN0.5 MG PO (11:45)
[2018-04-29] MEDS ORDERED: DEXTROSE 5%-L1000 ML IV (11:47)
[2018-04-29] MEDS ORDERED: FLEET ENEMA133 ML PR (11:48)
[2018-04-29] MEDS ORDERED: NORMAL SALINE FL2 ML INJ (11:49)
[2018-04-29] MEDS ORDERED: HEPARIN 5010 UNIT/1 IV (11:49)
--- NOTE | 2018-04-29 12:15 | NUR ---
PT ON ROOM AIR, MAINTAINS SATS WELL.
--- NOTE | 2018-04-29 14:30 | NUR ---
PT REPOSITIONED AND GIVEN 2 MG IV MORPHINE FOR PAIN. PT REMAINS OBTUNDED.
--- NOTE | 2018-04-29 15:30 | NUR ---
PT REPOSITIONED FOR COMFORT, WARM BLANKETS IN PLACE. PT VITALS WNL AT THIS TIME, PT REMAINS ON ROOM AIR.
--- NOTE | 2018-04-29 16:40 | NUR ---
IV SITE INTACT, PICC SITE INTACT, NO SWELLING OR REDNESS NOTED AT EITHER SITE. PICC SITE RETURNS BLOOD FROM BOTH LUMINS, FLUIDS AND FLUSHES INFUSE EASILY. PT SLEEPING SOUNDLY, APPEARS COMFORTABLE AT THIS TIME, NO GRIMACE NOTED ON FACE. PT VITALS WNL, PT PLACED BACK ON 2L O2 VIA NC FOR DESAT DURING SLEEP. URINE OUTPUT REMAINS.
--- NOTE | 2018-04-29 18:15 | NUR ---
PT BLOOD SUGAR WAS 75, CALLED TO UPDATE, ORDER GIVEN TO CHANGE IV FLUIDS TO D5LR FROM LR.
--- NOTE | 2018-04-29 18:38 | NUR ---
REPOSITIONED PT FOR COMFORT. PT LINENS CHANGED DUE TO PT INCONTINENT OF SMALL AMOUNT OF STOOL. NIA CARES AND SHAY CATH CARE DONE. PT REMAINS RESPONSIVE ONLY TO PAIN STIMULI.
--- NOTE | 2018-04-29 21:00 | NUR ---
PATIENT REPOSITIONED TO SIDE FOR COMFORT, LINENS CHANGED AND NIA CARE DONE DUE TO ENEMA FLUID LEAKING INTO BED.
--- NOTE | 2018-04-29 21:15 | NUR ---
UPDATED DR. CONTRERAS REGARDING PATIENT'S CONTINUE SEIZUE ACTIVITY DESPITE KEPPRA ADMINISATION AND SUSTAINED RR IN 30s. ADDITIONAL 500 MG KEPPRA ORDERED AND PN IV ATIVAN ORDERED. ALSO NOTIFIED MD THAT DESPITE ENEMA ADMINISTRATION, PATIENT IS NOT PASSING STOOL. ENEMAS RYLAN'tristan.
--- NOTE | 2018-04-29 22:00 | NUR ---
PATIENT REPOSITIONED AND CLEANED UP DUE TO DIARRHEA. SHAY CARE DONE. NOW RESTING ON SIDE, RR IS 25, O2 SATURATION IS 100% ON 2L O2 VIA NC. FLACC SCORE OF 0.
--- NOTE | 2018-04-29 23:27 | NUR ---
PATIENT CLEANED AND LINENS CHANGED DUE TO WATERY DISCHARGE FROM RECTUM. SHAY CARE DONE AGAIN. WHILE PATIENT BEING REPOSITION, SEIZURE ACTIVITY NOTED, PRN ATIVAN GIVEN. NOW RESTING ON SIDE, BREATHING IS EVEN AND UNLABORED, RR IS 26, O2 SATURATION IS 100% ON 2L O2 VIA NC.
--- NOTE | 2018-04-30 01:00 | NUR ---
PATIENT HAVING SEIZURE ACTIVITY, RR INCREASED TO 45, PATIENT HEAD TURNED TO LEFT, EYES OPEN AND FIXED, NON-RESPONSIVE TO NEITHER VERBAL NOR PAINFUL STIMULI. 3 MG IV ATIVAN GIVEN PER ORDER. SEIZURE ACTIVITY LASTED FOR ROUGHLY ONE MINUTE, PATIENT NOW RESTING WITH EYES CLOSED, BREATHING IS EVEN AND UNLABORED, RR REMAINS ELEVATED AT 32, O2 SATURATION IS 98% ON 2L O2.
--- NOTE | 2018-04-30 02:20 | NUR ---
UPDATED DR. CONTRERAS REGARDING PATIENT'S CONTINUED SEIZURE ACTIVITY DESPITE ADDITIONAL 500 MG IV KEPPRA ORDERED AND PRN ATIVAN ADMINISTRATION. ADDITIONAL DOSE OF 500 MG IV KEPPRA TO BE GIVEN. PATIENT WILL ALSO RECEIVE 1500 MG IV KEPPRA BID STARTING AT 0900.
--- NOTE | 2018-04-30 02:52 | NUR ---
PATIENT REPOSITIONED AND ATTEND CHANGED. NOW RESTING ON SIDE, FLACC SCORE OF 0. RR CONTINUES TO BE 33, O2 SATURATION 100% ON 2L O2, APPEARS COMFORTABLE, NO SIGNS OF DISTRESS.
--- NOTE | 2018-04-30 03:05 | NUR ---
CONTINUED SEIZURE ACTIVITY NOTED, RR UP TO 51, SUSTAIND FOR 15 SECONDS, 3 MG PRN IV ATIVAN GIVEN.
--- NOTE | 2018-04-30 03:42 | NUR ---
UPDATED DR. CONTRERAS REGARDING PATIENT'S CONTINUED SEIZURE ACTIVITY AFTER ADDITION 500 MG IV KEPPRA AND 3 MG IV ATIVAN, RR SUSTAINING >35. STATES THAT HE WILL WRITE NEW ORDERS.
--- NOTE | 2018-04-30 06:15 | NUR ---
DESPITE VALPROIC ACID ADMINISTRATION, PATIENT CONTINUES TO HAVE FREQUENT SEIZURE ACTIVITY, RR UP TO 53 WHILE SEIZING. 3 MG IV ATIVAN GIVEN.
--- NOTE | 2018-04-30 08:36 | NUR ---
PT MOSTLY OBTUNDED, RESPONSIVE TO PAIN STIMULI. PT VITALS WNL, URINE OUTPUT IS GREATER THAN QS. PICC LINE INTACT, NO REDNESS OR SWELLING NOTED, FLUIDS AND FLUSHES INFUSE EASILY, BLOOD RETURN OBTAINED. PT APPEARS TO BE HAVING FREQUENT SIEZURES.
--- NOTE | 2018-04-30 10:20 | NUR ---
PT HAIR SHAMPOOED IN BED WITH WARM WATER, HAIR BRUSHED, FACIAL CARE AND EYE CARE DONE WELL. PT MARY ALICE WELL. PT REPOSITIONED IN BED FOR COMFORT. PT CONTINUES TO HAVE SIEZURE ACTIVITY SEVERAL TIMES AN HOUR.
--- NOTE | 2018-04-30 12:10 | NUR ---
PT HAD LARGE LOOSE BM. NIA AREA CLEANED, AND SHAY CATH CARES DONE. CLEAN ATTENDS IN PLACE. LEG BRACE TAKEN OFF LEFT LEG TO ASSESS SKIN, TWO AREAS OF REDDENED SKIN FOUND. ONE AREA ON THE BACK OF THE LEFT CALF NOT BLANCHABLE, ANOTHER AREA ON THE BACK OF THE LEFT THIGH IS BLANCHABLE. BRACE LEFT OFF AT THIS TIME TO ALLOW SKIN TO REST. LEFT LEG SUPPORTED WITH PILLOWS.
--- NOTE | 2018-04-30 18:00 | NUR ---
PT APPEARS TO BE RESTING QUIETLY AT THIS TIME. VITALS WNL. NO SIEZURE LIKE ACTIVITY NOTED AT THIS TIME.
--- NOTE | 2018-04-30 20:00 | NUR ---
PATIENT RESTING IN BED, BREATHING REMAINS TACHYPNEIC AND SHALLOW. O2 SATURATION IS 92% ON 2L O2. FLACC SCORE OF 0, NO SIGNS OF DISTRESS. NGT TO LIS, GREEN CONTENT NOTED IN SUCTION CANISTER. ASSESSMENT AND VITALS DONE.
--- NOTE | 2018-04-30 21:00 | NUR ---
UPDATED DR. CONTRERAS REGARDING PATIENT'S LOW URINE OUTPUT. ORDERS TO MONITOR FOR ONE MORE HOUR.
--- NOTE | 2018-04-30 22:00 | NUR ---
UPDATED DR. CONTRERAS REGARDING PATIENT'S CONTINUED LOW URINE OUTPUT AND BP OF 95/56 (65), CONFIRMED WITH MANUAL PRESSURE. PATIENT TO RECEIVE 500 CC BOLUS F LR OVER ONE HOUR X1. PATIENT RESTING IN BED, RR REMAINS TACHYPNEIC BETTWE 33 AND 45, CONTINUES TO HAVE SEIZURE ACTIVITY. FLACC SCORE OF 0. PATIENT CLEANED AND REPOSITIONED FOR COMFORT.
--- NOTE | 2018-04-30 23:38 | NUR ---
PATIENT HAS CONTINUED SEIZURE ACTIVITY, 2 MG IV ATIVAN GIVEN PER ORDER.
--- NOTE | 2018-05-01 01:44 | NUR ---
CONTINUED SEIZURE ACTIVITY NOTED. 2 MG IV ATIVAN GIVEN.
--- NOTE | 2018-05-01 04:00 | NUR ---
PATIENT GIVEN 2 MG IV ATIVAN DUE TO CONTINUED SEIZURE ACTIVITY. REPOSITIONED AND CLEANED, RR REMAINS ELEVATED ABOVE 30. FLACC SCORE OF 0. ASSESSMENT AND VITALS DONE.
--- NOTE | 2018-05-01 05:38 | NUR ---
PATIENT REPOSITIONED AND CLEANED, NEW ATTENDS IN PLACE. RR BETWEEN 25 AND 32, CONTINUES TO HAVE SEIZURES. FLACC SCORE OF 0.
--- NOTE | 2018-05-01 07:48 | NUR ---
PATIENT NOTED TO BE DESATURATING WITH SP02 IN THE LOW 80s WHILE ON THE NASAL CANNULA AT 5 L. OXYMASK ADDED AT 10 L. PT'S BACK OF MOUTH ATTEMPTED TO SUCTION. RT CALLED AND ASKED TO HELP WITH DEEP SUCTIONING. PT'S UPPER LUNG PATEL ARE EXTREMELY RHONCHOROUS AND COARSE. RR IN THE 40-50s AT THIS TIME. SHAY DRAINING CLEAR YELLOW URINE. PT NON RESPONSIVE BUT DOES WITHDRAW TO SUCTIONING ATTEMPTS.
--- NOTE | 2018-05-01 08:04 | NUR ---
DR. CONTRERAS IN ROOM TO SEE PATIENT.
--- NOTE | 2018-05-01 08:08 | NUR ---
SP02 UP TO 95% ON NON REBREATHER AT 15 L. HOLDING OFF STARTING BIPAP AT THIS TIME. DR. CONTRERAS TO CALL PT'S FAMILY. PT RESPIRATORY EFFORT IS VERY LABORED, WITH EVIDENCE OF ACCESSORY MUSCLE USE THROUGHOUT CHEST WALL. NG REMAINS CONNECTED TO LIS. HR IN THE 100s. PT'S SKIN COLOR IS COOL AND MOTTLED IN HER ARMS AND TO HER LOWER LEGS. CONTINUE TO MONITOR CLOSELY.
--- NOTE | 2018-05-01 08:21 | NUR ---
PATIENT'S FAMILY TO BE ARRIVING SOON TO HAVE A CARE CONFERENCE REGARDING FURTHER TREATMENTS OF THIS PATIENT. RR STILL ELEVATED AT 40 AT THIS TIME. CONTINUE TO MONITOR.
--- NOTE | 2018-05-01 08:42 | NUR ---
PATIENT'S PARENTS ARRIVES AT THIS TIME. PATIENT'S DAUGHTER CALLED WELL AND WILL BE ARRIVING SHORTLY.
--- NOTE | 2018-05-01 08:45 | NUR ---
CARE CONFERENCE ATTENDEES: PATIENT, PARENTS-ERNIE AND WENCESLAO RODRIGUEZ, DAUGHTER ERASMO LEDBETTER STAFF: DR CONTRERAS, MYSELF CASE MANAGEMENT, WILMAR CONTRERAS EXPLAINED TO THE FAMILY THAT THE PT WAS WORKING VERY HARD TO BREATH AND THAT HER BODY WAS BEING TAXED AND THAT HE DIDN'T THINK THERE IS MUCH HOPE FOR HER TO SURVIVE AT THIS RATE WITH MORE EXTENSIVE EQUIPMENT AND THAT EVEN WITH THAT SHE MAY NOT MAKE IT. FAMILY STATED THEY UNDERSTOOD THIS AND JUST WANTED TO MAKE SURE SHE IS NOT SUFFERING AT ALL, AND COULD HE PUT HER ON A MS DRIP, HE SAID THEY WOULD TRY INJECTIONS FIRST AND SEE IF THAT HELPED AND IF NEED BE HE WOULD DO THE PAIN PUMP. FAMILY DENIED FURTHER QUESTIONS AT THIS TIME AND WERE TOLD THAT IF THEY HAD OTHER QUESTIONS TO PLEASE ASK.
--- NOTE | 2018-05-01 09:09 | NUR ---
CARE CONFERENCE HELD WITH PT'S PARENTS, PT'S DAUGHTER, DR. CONTRERAS, SILL WORKER, AND THIS RN. DECISION WAS ULTIMATELY MADE TO TRANSITION PATIENT TO COMFORT CARE AND START PATIENT ON MORPHINE TO HELP WITH HER WORK OF BREATHING. ALL OTHER MEDICAITONS WILL BE D/C, BUT KEEPING MEDICATIONS THAT COINCIDE [facility] COMFORT OF THIS PATIENT. FAMILY REMAINS IN ROOM AT THIS TIME. CONTINUE TO MONITOR.
--- NOTE | 2018-05-01 09:18 | NUR ---
PATIENT GIVEN 4 MG IV MORPHINE AT THIS TIME. PATIENT TO BE STARTED ON A MORPHINE FORECAST ANALYST. FAMILY REMAINS AT BEDSIDE.
--- NOTE | 2018-05-01 10:00 | NUR ---
PATIENT REPOSITIONED TO RIGHT SIDE. COMFORT MEASURES BEING UTILIZED AT THIS TIME. HOSPICE TRAY IN ROOM. MONITOR TURNED OFF IN THE ROOM. PT'S FAMILY REMAINS AT BEDSIDE. MORPHINE TUMBLER PLATER CONTINUES AT 4 MG/HR.
--- NOTE | 2018-05-01 10:13 | NUR ---
OXYGEN TURNED DOWN TO 10 L NRB. SUPERVISOR ADVICE STARTED AT 4 MG CONTINUOUS, 4 MG SUPERVISOR ADVICE DOSE, LOCK OUT 10 MINUTES, AND A 4 HR LIMIT OF 30 MG. PATIENT'S FAMILY EDUCATED ABOUT THIS PROCESS AND THE MEDICATION BEING STARTED. CONTINUE TO MONITOR.
--- NOTE | 2018-05-01 12:31 | NUR ---
RR 23 AT THIS TIME. FAMILY REMAINS AT BEDSIDE.
--- NOTE | 2018-05-01 13:39 | NUR ---
PATIENT ASSESSED AT THIS TIME. PT HAS VERY LABORED BREATHING, BUT SLOWER THAN IT WAS BEFORE WITH RR RANING IN THE MID TO LOWER 20 s CURRENTLY. PT'S MOUTH SUCTIONED FOR ORAL SECRETIONS AND THE BACK OF HER THROAT. PT DOES NOT SEEM TO HAVE AN INTACT GAG REFLEX AT THIS TIME. OXYGEN REMAINS ON AN OXYMASK AT 3 L AT THIS TIME FOR COMFORT. PT IS NOT RESPONSIVE TO STIMULI AT THIS TIME. PT'S MOTHER AT BEDSIDE, BUT HER FATHER AND HER DAUGHTER HAVE LEFT AT THIS TIME BUT WILL BE RETURNING. MORPHINE DIRECTOR GLOBAL SALES CONTINUES AT 4 MG/HR.
--- NOTE | 2018-05-01 14:41 | NUR ---
ORAL CARE PROVIDED AND PATIENT TURNED TO LEFT SIDE. PATIENT HAS RR IN THE LOW 20s CURRENTLY, AND VERY LABORED BREATHING. PT'S FAMILY AT BEDSIDE. MORPHINE MEDICAL TECHNOLOGIST CHIEF CONTINUES AT 4 MG/HR AT THIS TIME.
--- NOTE | 2018-05-01 14:43 | NUR ---
PT PLACED ON COMFORT CARE MEASURES BY FAMILY THIS MORNING. FAMILY PRESENT SON AND HE WILL BE HERE SOMETIME TODAY. COMFORT TRAY ORDERED, AND DAUGHTER CONTINUES TO TALK TO PT, WHO WILL OCCASIONALLY OPEN HER EYES-SEEMING IN RESPONSE. HAD PRAYER WITH FAMILY, WILL FOLLOW NEEDED
--- NOTE | 2018-05-01 16:00 | NUR ---
PATIENT'S FAMILY LEFT AT THIS TIME FOR THE EVENING. WILL CALL FAMILY WITH ANY UPDATES NEEDED.
--- NOTE | 2018-05-01 16:34 | NUR ---
PATIENT GIVEN BED BATH AND LINEN CHANGED. PT REMAINS UNRESPONSIVE. NEW VIAL PLACED IN HOT TAR ROOFER. PT TRANSITIONED TO A NASAL CANNULA AT 2 L. RR IS 21 AT THIS TIME. BREATHING REMAINS LABORED AT THIS TIME WITH ACCESSORY MUSCLE USE. CONTINUE TO MONITOR.
--- NOTE | 2018-05-01 17:48 | NUR ---
PATIENT CONTINUES TO HAVE SOME LABORED BREATHING. RR RANGES FROM 14-21. PATIENT NONRESPONSIVE. PT NOTED TO APPEAR MORE PALE AT THIS TIME. MORPHINE DRY WALL NAILER REMAINS INFUSING FOR COMFORT. CONTINUE TO MONITOR.
--- NOTE | 2018-05-01 18:28 | NUR ---
RR 14 AT THIS TIME. PT SHOWING MOTTLING TO HER LOWER LEGS. RADIAL PULSES STILL PALAPATED. PT REMAINS NONRESPONSIVE.
--- NOTE | 2018-05-01 19:08 | NUR ---
PATIENT'S PARENTS AND HER DAUGHTER UPDATED AT THIS TIME TO PT'S CONDITION AND STATUS. PT HAS HAD AGONAL BREATHING AT TIMES AND EVEN NOTED TO BE APNEIC, BUT CURRENTLY HER RR IS 12. REPORT GIVEN TO BOILER HOUSE INSPECTOR RNs.
--- NOTE | 2018-05-01 19:28 | NUR ---
PATIENT'S RR 0 AT THIS TIME. NO HEART TONES AUSCULTATED. DR. CONTRERAS NOTIFIED AT 1923.
--- NOTE | 2018-05-01 19:40 | NUR ---
VERIFIED TIME OF . CALLED PASTORAL CARE AND DONOR LINE. PASTORAL CARE WILL NOTIFY THE HOME.
--- NOTE | 2018-05-01 21:10 | NUR ---
LETTER OF CREDIT CLERK WAS CALLED IN AFTER PT . FAMILY WAS NOTIFIED BUT IS NOT PRESENT. HOME OF CHOICE IS [facility] HERE IN [place]. PT'S BODY WAS SENT TO . SHE HAD NO PERSONAL EFFECTS EXCEPT ONE ITEM ATTACHED TO HER LEG THAT APPEARED TO BE AN ALARM FROM [employer]. THIS ITEM WAS SENT WITH THE BODY TO [place] [facility] FOR THE FAMILY TO RETURN TO THE FACILITY.
--- NOTE | 2018-05-01 21:40 | NUR ---
DONOR LINE CALLED BACK. 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 DONOR LINE STATED THEY WOULD FOLLOW-UP WITH THE [facility] FOR FUTHER DONOR RELATED ISSUES. UPDATED THAT THERE IS NO FAMILY PRESENT, DONOR LINE STATED THEY WOULD CONTACT FAMILY IN REGARDS TO GETTING CONSENT FOR DONATION IF APPLICABLE.
--- NOTE | 2018-05-01 21:52 | NUR ---
[facility] IN TO TAKE PATIENT. ONLY BELONGING WITH PATIENT IS A QUILT. SENT WITH HOME. FAMILY WAS NOTIFIED AND WILL FOLLOW-UP WITH THE HOME.
== END 2018-05-01 19:23 | DRG 175 ==
LOC: ED 16:28 → CCU 16:30
PROVIDERS: ADMIT Student in an Organized Health Care Education/Training Program
DX: T79.1XXA Fat embolism (traumatic), initial encounter (principal); J96.01 Acute respiratory failure with hypoxia; G93.41 Metabolic encephalopathy; T84.81XA Embolism due to internal orthopedic prosthetic devices, implants and grafts, initial encounter; K56.609 Unspecified intestinal obstruction, unspecified as to partial versus complete obstruction; N17.9 Acute kidney failure, unspecified; N39.0 Urinary tract infection, site not specified; G40.901 Epilepsy, unspecified, not intractable, with status epilepticus; E87.5 Hyperkalemia; E87.6 Hypokalemia; E83.42 Hypomagnesemia; E83.39 Other disorders of phosphorus metabolism; K56.41 Fecal impaction; B96.20 Unspecified Escherichia coli [E. coli] as the cause of diseases classified elsewhere; F10.21 Alcohol dependence, in remission; F32.9 Major depressive disorder, single episode, unspecified; D64.9 Anemia, unspecified; I10 Essential (primary) hypertension; Z87.891 Personal history of nicotine dependence; I69.354 Hemiplegia and hemiparesis following cerebral infarction affecting left non-dominant side
CPT/HCPCS: 36415; 36569; 51702; 70450; 71045; 71260; 74018; 74176; 80048; 80053; 80069; 81001; 82140; 82607; 82728; 82746; 83540; 83690; 83735; 84100; 84466; 85025; 87088; 93005; 93010; 96361; 96365; 96366; 96372; 96375; 96376; 97163; 99285; G0378; G8978; G8979; J0610; J0696; J1650; J1815; J1885; J1953; J2060; J2270; J3475; J3480; J7060; J7120; Q9967